=== PATIENT | female | born 1985 | race Caucasian/White ===

== ENCOUNTER 2018-06-16 07:00 | Outpatient (RCR) | payer OTHER, SELFPAY ==
--- NOTE | 2018-02-10 13:48 | MASS.EVAL ---
Massage Therapy Evaluation: Evaluation Date: 02/10/2018 The patient is a 32 year old female referred to [facility] by Dr. Bonilla with a diagnosis of low back pain and headaches. She presents today with symptoms of tension and aching all through the upper body, primarily the neck and shoulders. She reports experiencing occassional headaches. She also reports numbness and tingling bilaterally in the upper extremities. She believes the neck and shoulder tension are contributing factors for both. She also has occassional bouts of sciatica. She rates her overall health to be in good condition with no limitations to activities of daily living. Medications: Control Flexeril Goals: Decrease frequency and intensity of headaches Decrease muscle tension through neck and shoulders Relieve sciatic symptoms See chart for complete health history from PCP. The first treatment consisted of a one hour deep tissue massage to the upper body focusing on the neck and shoulders. The patient had significant tension through the suboccipitals, scalenes, SCM, trapezius, levator scapulae, and rhomboids. Knots were present in the trapezius, levator and rhomboids. She responded well to treatment as there was a moderate decrease to the overall muscle tension through the upper body. I plan on seeing her on an as needed basis for a total of 10 one hour sessions of massage. I believe regular treatment will help meet her goals. Ghazal Tafoya LMT
--- NOTE | 2018-10-26 16:24 | DS.PCM_ITS ---
Massage Therapy Discharge Summary: Initial Evaluation: 02/10/2018 Diagnosis: Low back pain Headaches No. of Visits: 4 of 10 Date of last visit: 06/16/2018 Goals: Decreased frequency and intensity of headaches Decreased pain and muscle tension This patient is being discharged from our care at the [facility]. Thank you, Ghazal Tafoya LMT
== END 2018-06-16 19:00 | disposition home or self-care (01) ==
LOC: MASS 07:00
PROVIDERS: Family Provider Family Medicine; PCP Family Medicine; Visit Provider Family Medicine
DX: M54.5 Low back pain (principal)
CPT/HCPCS: 97124

== ENCOUNTER → 2018-08-02 13:00 | Outpatient (CLI) | payer OTHER, SELFPAY ==
[2018-08-06 08:09] LABS: HPV Reflexed? NOT INDICATED
== END ==
PROVIDERS: Family Provider Obstetrics & Gynecology; PCP Obstetrics & Gynecology; Visit Provider Obstetrics & Gynecology
DX: Z12.4 Encounter for screening for malignant neoplasm of cervix (principal)
CPT/HCPCS: 88175; G0145

== ENCOUNTER → 2020-08-08 | Outpatient (CLI) | payer OTHER, SELFPAY ==
[2020-08-15 14:51] LABS: HPV Reflexed? NOT INDICATED
== END | disposition home or self-care (01) ==
LOC: LABSPEC 13:01
PROVIDERS: PCP Family Medicine; Visit Provider Obstetrics & Gynecology
DX: Z12.4 Encounter for screening for malignant neoplasm of cervix (principal)
CPT/HCPCS: 88175; G0145

== ENCOUNTER → 2021-01-18 11:36 | Outpatient (CLI) | payer OTHER, SELFPAY ==
[2021-01-18 12:39] LABS: Erythrocyte Sedimentation Rate 24 mm/hr (0-30)
== END ==
PROVIDERS: PCP Family Medicine; Referring Provider Family Medicine; Visit Provider Family Medicine
DX: M79.10 Myalgia, unspecified site (principal); M25.50 Pain in unspecified joint; W57.XXXA Bitten or stung by nonvenomous insect and other nonvenomous arthropods, initial encounter
CPT/HCPCS: 36415; 85652; 86140

== ENCOUNTER → 2021-07-09 20:57 | Outpatient (CLI) | payer OTHER, SELFPAY | PROVIDERS: PCP Family Medicine; Visit Provider Physician Assistant Surgical | DX: R51.9 Headache, unspecified (principal) | CPT/HCPCS: 87635; U0005; U0003 ==

== ENCOUNTER → 2021-08-27 08:21 | Outpatient (CLI) | payer OTHER, SELFPAY ==
[2021-08-27 09:30] LABS: Erythrocyte Sedimentation Rate 22 mm/hr (0-30)
[2021-08-27 10:00] LABS: Rheumatoid Factor < 10.0 IU/mL (<15)
[2021-08-28 13:17] LABS: ANTINUCLEAR ANTIBODIES DIRECT Negative (Negative)
[2021-08-29 15:18] LABS: CCP IgG Antibodies 5 units (0-19)
== END ==
PROVIDERS: PCP Family Medicine; Referring Provider Family Medicine; Visit Provider Family Medicine
DX: M25.50 Pain in unspecified joint (principal); R79.82 Elevated C-reactive protein (CRP)
CPT/HCPCS: 36415; 85652; 86038; 86140; 86200; 86225; 86235; 86431

== ENCOUNTER 2021-10-22 15:15 | Outpatient (RCR) | payer OTHER, SELFPAY ==
--- NOTE | 2020-12-18 16:42 | MASS.EVAL_ITS ---
Massage Therapy Evaluation: Initial Evaluation Date: 12/18/2020 /Age: 10 1985, 35 Diagnosis: Cervicalgia Low Back Pain Goals: Decrease muscle pain and tension Decrease headaches Decrease numbness/tingling in upper extremities Decrease sciatica Assessment: Aminata is a good candidate for massage at this time. We have had success treat ing her symptoms in the past. Plan: To be seen one time per month or PRN for a total of 10 one hour sessions.
--- NOTE | 2021-10-23 06:52 | MASS.DISCH ---
Massage Therapy Discharge Summary: Initial Evaluation Date: 12/18/20 Diagnosis: Cervicalgia Low Back Pain No. of Visits: 10 Date of last visit: 10/22/21 This patient is being discharged from our care at the [facility]. Thank you, Ghazal Tafoya LMT
== END 2021-10-22 19:00 | disposition home or self-care (01) ==
LOC: MASS 15:15
PROVIDERS: PCP Family Medicine; Referring Provider Family Medicine; Visit Provider Family Medicine
DX: M54.2 Cervicalgia (principal); M54.50 Low back pain, unspecified
CPT/HCPCS: 97124

== ENCOUNTER → 2022-04-25 | Outpatient (CLI) | payer OTHER, SELFPAY | END | disposition home or self-care (01) | PROVIDERS: Referring Provider Physician Assistant; Visit Provider Physician Assistant | DX: R60.9 Edema, unspecified (principal) | CPT/HCPCS: 87070; 87077; 87186; 87205 ==

== ENCOUNTER → 2022-07-15 | Outpatient (CLI) | payer OTHER, SELFPAY ==
[2022-07-15 14:44] LABS: Troponin-I HS 3 pg/mL (3.0-54.0)
[2022-07-18 12:08] LABS: PROEL- A/G Ratio 1.1 (0.7-1.7); PROEL- Albumin 3.7 g/dL (2.9-4.4); PROEL- Alpha-1 Globulin 0.3 g/dL (0.0-0.4); PROEL- Alpha-2 Globulin 0.9 g/dL (0.4-1.0); PROEL- Beta Globulin 1.2 g/dL (0.7-1.3); PROEL- Gamma Globulin 1.1 g/dL (0.4-1.8); PROEL- Globulin, Total 3.5 g/dL (2.2-3.9); PROEL- TOTAL PROTEIN 7.2 g/dL (6.0-8.5); PROELU- Albumin, Urine 27.8 % (.); PROELU- Alpha-1-Globulin,Ur 7.5 % (.); PROELU- Alpha-2-Globulin,Ur 16.8 % (.); PROELU- Beta Globulin, Ur 26.6 % (.); PROELU- Gamma Globulin, Ur 21.3 % (.); Total Protein, Ur 6.8 mg/dL (Not Estab.)
== END | disposition home or self-care (01) ==
LOC: LAB 12:09
PROVIDERS: PCP Family Medicine; Referring Provider Family Medicine; Visit Provider Family Medicine
DX: Z82.49 Family history of ischemic heart disease and other diseases of the circulatory system (principal)
CPT/HCPCS: 36415; 84165; 84166; 84484; 86141

== ENCOUNTER → 2022-08-08 | Outpatient (CLI) | payer OTHER, SELFPAY ==
--- NOTE | 2022-08-08 08:29 | EKG12_ITS ---
Test Reason : ELEVATED CRP Blood Pressure : / mmHG Vent. Rate : 079 BPM Atrial Rate : 079 BPM P-R Int : 124 ms QRS Dur : 084 ms QT Int : 362 ms P-R-T Axes : 015 035 025 degrees QTc Int : 415 ms Normal sinus rhythm Normal ECG Confirmed by KARTHIK FRAGA, KRISTINE ([id number]), photo editor LUIS VALENTINE ([id number]) on 08/08/2022 10:41:04 AM Referred By: Maria G Bonilla Confirmed By:KRISTINE ANGELES MD
== END | disposition home or self-care (01) ==
LOC: PSN 08:28
PROVIDERS: PCP Family Medicine; Referring Provider Family Medicine; Visit Provider Family Medicine
DX: R07.9 Chest pain, unspecified (principal); R79.82 Elevated C-reactive protein (CRP)
CPT/HCPCS: 93005

== ENCOUNTER → 2022-09-22 | Outpatient (CLI) | payer OTHER, SELFPAY ==
--- NOTE | 2022-09-22 17:02 | STRESSREP ---
Stress Test Report Date: 09/22/2022 Procedure: Exercise tolerance test Indications: Family history of CAD Consent: Per the patient Procedure: The patient exercised on a Westley protocol for 8 minutes and 1 second achieving a peak heart rate of 176 bpm (97% predicted maximal heart rate) with a peak blood pressure 158/60 mmHg and a peak MET capacity of approximately 10.1 MET's. The baseline ECG demonstrated normal sinus rhythm. The peak exercise ECG demonstrated no ischemic changes. There were no cardiac dysrhythmias pretest, during exercise, or recovery. The functional capacity was considered average. The patient had no complaints of chest discomfort during exercise or recovery. The examination was discontinued secondary to target heart rate being achieved, leg fatigue and shortness of breath. Impression: 1. Technically adequate (percent predicted maximal heart rate greater than 85%) exercise tolerance test 2. Peak exercise ECG with no ischemic changes. 3. There were no cardiac dysrhythmias during exercise or recovery This note was generated with [employer] software. It may contain incorrect words, spelling, and punctuation that were not noted in checking the note before signing.
== END | disposition home or self-care (01) ==
LOC: CVS 11:55
PROVIDERS: PCP Family Medicine; Referring Provider Internal Medicine Cardiovascular Disease; Visit Provider Internal Medicine Cardiovascular Disease
DX: R79.82 Elevated C-reactive protein (CRP) (principal)
CPT/HCPCS: 93017

== ENCOUNTER → 2022-10-13 | Outpatient (CLI) | payer OTHER, SELFPAY ==
--- NOTE | 2022-10-13 15:36 | RAD_ITS ---
STUDY: X-RAY - RIGHT HAND REASON FOR EXAM: Female, 37 years old. Pain after a fall TECHNIQUE: 3 view(s) of the hand. COMPARISON: None. FINDINGS: Normal radiocarpal articulation. Normal distal radioulnar joint. Normal visualized carpal bones. Normal carpal articulations Normal carpometacarpal articulation of the thumb. Normal second through fifth carpometacarpal joints. Normal metacarpi. Normal metacarpophalangeal joint of the thumb. Normal interphalangeal joint of the thumb. Normal proximal and distal phalanges of the thumb. Normal metacarpophalangeal joints of the second through fifth fingers. Normal proximal and distal interphalangeal joints of the second through fifth fingers. Normal phalanges of the second through fifth fingers. The soft tissue structures are unremarkable. RAD/Hand Min 3 Views IMPRESSION: Normal x-ray examination of the hand. Electronically Signed: Osmin Jessica MD at 15:57 EST ,
--- NOTE | 2022-10-13 15:40 | RAD_ITS ---
STUDY: X-RAY - RIGHT WRIST REASON FOR EXAM: Female, 37 years old. Pain and swelling TECHNIQUE: 3 view(s) of the wrist were obtained. COMPARISON: None. FINDINGS: Normal visualized distal radius and ulna. Normal radiocarpal articulation. Normal distal radioulnar articulation. Normal carpal bones. Normal carpal articulations. Normal carpometacarpal articulation of the thumb. Normal second through fifth carpometacarpal articulations. Normal visualized metacarpal bones. The soft tissue structures are unremarkable. RAD/Wrist min 3 Views IMPRESSION: Normal x-ray examination of the wrist. Electronically Signed: Osmin Jessica MD at 15:58 EST ,
== END | disposition home or self-care (01) ==
PROVIDERS: PCP Family Medicine; Referring Provider Family Medicine; Visit Provider Family Medicine
DX: M79.641 Pain in right hand (principal); M25.531 Pain in right wrist; W19.XXXA Unspecified fall, initial encounter
CPT/HCPCS: 73110; 73130

== ENCOUNTER → 2023-03-04 | Outpatient (CLI) | payer OTHER, SELFPAY ==
[2023-03-12 10:09] LABS: HPV APTIMA, High Risk Negative (Negative)
== END | disposition home or self-care (01) ==
LOC: LABSPEC 16:11
PROVIDERS: PCP Family Medicine; Referring Provider Registered Nurse; Visit Provider Registered Nurse
DX: Z01.419 Encounter for gynecological examination (general) (routine) without abnormal findings (principal)
CPT/HCPCS: 87624; 88175; G0145

== ENCOUNTER → 2023-09-16 | Outpatient (CLI) | payer OTHER, SELFPAY ==
[2023-09-16 11:30] LABS: CRP, High Sensitivity Cardiac 8.23 mg/L
== END | disposition home or self-care (01) ==
PROVIDERS: PCP Family Medicine; Referring Provider Internal Medicine Cardiovascular Disease; Visit Provider Internal Medicine Cardiovascular Disease
DX: R79.82 Elevated C-reactive protein (CRP) (principal); Z82.49 Family history of ischemic heart disease and other diseases of the circulatory system; E78.5 Hyperlipidemia, unspecified
CPT/HCPCS: 36415; 86141

== ENCOUNTER → 2023-10-07 | Outpatient (CLI) | payer OTHER, SELFPAY ==
--- NOTE | 2023-10-07 16:36 | RAD_ITS ---
STUDY: X-RAY - LEFT SHOULDER REASON FOR EXAM: Female, 38 years old. LEFT SHOULDER PAIN TECHNIQUE: 4 view(s) of the shoulder. COMPARISON: None. FINDINGS: Normal glenohumeral articulation. Normal acromioclavicular joint. Normal acromion. Normal humeral head and visualized proximal humerus. The soft tissue structures are unremarkable. Normal visualized pulmonary apex. RAD/Shoulder min 2 Views IMPRESSION: Normal x-ray examination of the shoulder. Electronically Signed: Axel Alatorre MD at 20:53 EST ,
== END | disposition home or self-care (01) ==
LOC: RAD 16:35
PROVIDERS: PCP Family Medicine; Referring Provider Nurse Practitioner Family; Visit Provider Nurse Practitioner Family
DX: M25.512 Pain in left shoulder (principal)
CPT/HCPCS: 73030

== ENCOUNTER 2023-11-05 07:30 | Outpatient (RCR) | payer OTHER, SELFPAY ==
--- NOTE | 2023-10-13 08:54 | HP.PTEVAL_ITS ---
Patient's Visit Information Visit Information Visit Information: RENNY ESTRADA is a 38 year old F referred to Physical Therapy by Dr. 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 Date of Evaluation: 10/13/23 Physical Therapist: YULY Abebe Visit Plan Frequency: 2x /Week Duration: 2 Months Plan: 2X/ week for 6 weeks for neck and lat stretching, postural and scapular exercises, L RC strength with HEP HEP: Wall lat stretch, supine wand flexion, Seated with arm under the chair levator stretch, mid rows with green band Subjective Subjective: Pt reports that she has trouble to use the COLEMAN or drive though on the L. She occ has paresthesia of the arm to the elbow. She was driving and got pain radiating from shoulder down to her hand and it got worse through the night around 09-20-23. She went to sleep and she woke up in extreme pain. It is not getting better. X-ray was normal. She is thinking that she has some kind of tear and it is worse with movement out to the side . She is waking up N&T in the L hand. She has a deep dull ache in the joint and N&T into the hand. She has had multiple PT for neck issues and tension ARAMBULA and did not have any x- rays. She is R handed. She has been sleeping on her back because of the shoulder pain and sleeping on the L shoulder makes it worse. Her pain is better with 500mg naproxen helps her to sleep. She was waking up in pain before then. 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 With in the past 2 months she has been trying to exercises more (yoga) and she did notice discomfort with push ups. 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 Shoulder flexion and abd are painful and tight at end range on the L. IR on the R L1 B L shoulder MMT: R shld flex 9.3 and L 6.2 R shld abd 6.8 and L 3.9 R shld ER 7.8 and L 5 R shld IR 7.6 and L 6.2 C-spine AROM: flex 100%, Rot B 90%, Ext 25%, SB R 75% PROM L shoulder tight at end range with some pain. Lat was really tight B as well as c-spine musculature Posture: rounded shoulders Balance/Special Test Scores Quick DASH Score: 52.2725 Goals Goal 1:: I HEP Goal Time Frame: 6-8 Weeks Goal 2:: Be able to use L UE to reach out to the side without pain in the drive through or COELMAN Goal Time Frame: 6-8 Weeks Goal 3:: Increase L shoulder strength (at time of the eval: shoulder MMT: R shld flex 9.3 and L 6.2 R shld abd 6.8 and L 3.9 R shld ER 7.8 and L 5 R shld IR 7.6 and L 6.2) Goal Time Frame: 6-8 Weeks Goal 4:: Be more aware and sit with upright posture during treatment sessions and at work etc Goal Time Frame: 6-8 Weeks Rehabilitation Potential Rehabilitation Potential: Good Anticipated Interventions Patient/Client Instruction: Educate patient on: Condition and Plan of Care For the Purpose of:: To decrease pain, To increase ROM, To improve nutrient delivery to tissue, To improve muscle performance and motor function, To improve ability to perform ADL's, To increase tolerance to activity/condition/position, To improve performance and independence with ADL's, To decrease level of supervision to perform tasks, To improve ability of physical actions for home/community/work/leisure, To improve health of tissue, To decrease soft tissue restriction and To increase flexibility/ROM Therapeutic Exercise to Include: Strength training, Postural training, Fle xibilty training, Neuromotor development, Passive ROM, Active ROM and Scapular Strength/Stabilization For the Purpose of:: To decrease pain, To increase ROM, To improve nutrient delivery to tissue, To improve muscle performance and motor function, To improve ability to perform ADL's, To increase tolerance to activity/condition/position, To improve performance and independence with ADL's, To improve health of tissue, To decrease soft tissue restriction and To increase flexibility/ROM Manual Therapy Techniques to Include: Mobilization, Passive ROM and Soft tissue mobilization For the Purpose of:: To decrease pain, To increase ROM, To improve nutrient delivery to tissue, To improve muscle performance and motor function, To improve ability to perform ADL's, To increase tolerance to activity/condition/position, To improve health of tissue, To decrease soft tissue restriction and To increase flexibility/ROM Text: Thank you for the opportunity to evaluate your patient. For Medicare and Medicare HMO plans, please review the plan of care and approve it. It will need to be FAXED BACK to us at [phone] for Medicare purposes. For Medicare only, by signing this I certify the plan of care. Please let me know if there are questions or concerns regarding this plan of care. Physician Signature: Date:
--- NOTE | 2023-11-05 08:06 | HP.PTDCSUM ---
Discharge Summary D/C summary: It has been my pleasure to treat RENNY ESTRADA referred by Dr. Maria G Bonilla DO, with the diagnosis of L shoulder disorder of the synovium & tendon for a total of 7 visit(s). Discharge Date: 11/05/23 Please see the following information for a summary of their discharge status. Subjective Subjective: Pt has pictures for all of the exercises on them and stretches and feels comfortable doing them at home. She def feels that it is better/stronger. She has less pain reaching out to the side Pain L shoulder pain: Pain Intensity (Out of 10): 1 c-spoine: Pain Intensity (Out of 10): 1 Overall Improvement % Improvement: 50 Objective Objective/Function: shoulder MMT: R shld flex 9.3 and L 7.8 R shld abd 6.8 and L 7.6 R shld ER 7.8 and L 9.7 R shld IR 7.6 and L 11 Goals Goal 1:: I HEP Goal Progress: Goal Met Goal 2:: Be able to use L UE to reach out to the side without pain in the drive through or [employer]LEMAN Goal Progress: Progressing Goal 3:: Increase L shoulder strength (at time of the eval: shoulder MMT: R shld flex 9.3 and L 6.2 R shld abd 6.8 and L 3.9 R shld ER 7.8 and L 5 R shld IR 7.6 and L 6.2) Goal Progress: Goal Met Goal 4:: Be more aware and sit with upright posture during treatment sessions and at work etc Goal Progress: Goal Met Plan Plan: DC PT to I HEP D/C Information Discharge Comments: DC PT to HEP d/c sentence: If there are questions or concerns regarding this patient's physical therapy, please feel free to call me at [phone]. Thank you for the referral of this patient. Sincerely, Vannessa Peralta, MPT Balance/Gait/Functional tests Balance/Special Test Scores Quick DASH Score: 20.4525 Improvement % Improvement: 50
== END 2023-11-05 19:00 | disposition home or self-care (01) ==
LOC: PT 07:30
PROVIDERS: PCP Family Medicine; Referring Provider Family Medicine; Visit Provider Family Medicine
DX: M67.912 Unspecified disorder of synovium and tendon, left shoulder (principal)
CPT/HCPCS: 97110; 97162

== ENCOUNTER → 2024-03-18 | Outpatient (CLI) | payer OTHER, SELFPAY ==
--- NOTE | 2024-03-18 11:56 | BI_ITS ---
MAMMOGRAPHY - BILATERAL SCREENING REASON FOR EXAM: Female, 38 years old. Routine annual screening examination. PERTINENT HISTORY: Non-contributory. TECHNIQUE: Digital bilateral breast shauna (3D mammographic acquisition) in the CC and MLO projections. 2-D mediolateral oblique (MLO) and craniocaudad (CC) views of both breasts were obtained. CAD: Full Field Digital Mammography with Computer Added Detection was performed. COMPARISON: None. Baseline examination. FINDINGS: Breast Composition: There are scattered areas of fibroglandular density. There are no dominant masses or suspicious calcifications. No other significant abnormalities are identified. BI/SCRN MAMM (CAD)W/SHAUNA BILAT IMPRESSION: Negative screening mammogram. Yearly followup mammogram recommended. (A) ASSESSMENT CATEGORY: BIRADS Category 1: Negative. A letter regarding these results will be sent to the patient by the facility within 30 days. Approximately 10% of breast cancers are not detected by mammography. A normal mammogram should not delay biopsy of a clinically suspicious abnormality. [id number] Electronically Signed: José Miguel Kim MD at 13:15 EDT ,
== END | disposition home or self-care (01) ==
LOC: OPBI 11:55
PROVIDERS: PCP Family Medicine; Referring Provider Nurse Practitioner Family; Visit Provider Nurse Practitioner Family
DX: Z12.31 Encounter for screening mammogram for malignant neoplasm of breast (principal)
CPT/HCPCS: 77063; 77067

== ENCOUNTER → 2025-05-24 | Outpatient (CLI) | payer OTHER, SELFPAY ==
--- NOTE | 2025-05-24 16:15 | BI_ITS ---
EXAM: SCRN MAMM (CAD)W/SHAUNA BILAT DATE: 05/24/2025 CLINICAL HISTORY: F, Age 39 y/o , SCREENING FOR BREAST CANCER No family history. TECHNIQUE: SCRN MAMM (CAD)W/SHAUNA BILAT COMPARISON: Prior exam(s) dated March 18, 2024.. FINDINGS: TISSUE DENSITY: There are scattered areas of fibroglandular density. Bilateral Breast Mammographic Findings: No significant masses, calcifications or other abnormalities are identified. No suspicious masses, areas of developing architectural distortion, or suspicious calcifications. There has been no significant interval change. BI/SCRN MAMM (CAD)W/SHAUNA BILAT IMPRESSION: Stable examination OVERALL FINAL ASSESSMENT BI-RADS 1: NEGATIVE. RECOMMENDATION: Routine annual follow-up in 1 Year A letter with findings and recommendations will be mailed to the patient. Reading Location: [place] [address]
--- NOTE | 2025-05-24 16:15 | BI_ITS ---
EXAM: SCRN MAMM (CAD)W/SHAUNA BILAT DATE: 05/24/2025 CLINICAL HISTORY: F, Age 39 y/o , SCREENING FOR BREAST CANCER No family history. TECHNIQUE: SCRN MAMM (CAD)W/SHAUNA BILAT COMPARISON: Prior exam(s) dated March 18, 2024.. FINDINGS: TISSUE DENSITY: There are scattered areas of fibroglandular density. Bilateral Breast Mammographic Findings: No significant masses, calcifications or other abnormalities are identified. No suspicious masses, areas of developing architectural distortion, or suspicious calcifications. There has been no significant interval change. BI/SCRN MAMM (CAD)W/SHAUNA BILAT IMPRESSION: Stable examination OVERALL FINAL ASSESSMENT BI-RADS 1: NEGATIVE. RECOMMENDATION: Routine annual follow-up in 1 Year A letter with findings and recommendations will be mailed to the patient. Reading Location: [place] [address]
== END | disposition home or self-care (01) ==
LOC: OPBI 16:10
PROVIDERS: PCP Family Medicine; Referring Provider Nurse Practitioner Family; Visit Provider Nurse Practitioner Family
DX: Z12.31 Encounter for screening mammogram for malignant neoplasm of breast (principal)
CPT/HCPCS: 77063; 77067

== ENCOUNTER → 2025-10-16 | Outpatient (CLI) | payer OTHER, SELFPAY ==
--- NOTE | 2025-10-16 07:15 | CT_ITS ---
PROCEDURE: LIMITED CHEST CT CARDIAC ONLY 10/16/2025 REASON FOR EXAM: FAM HX CAD TECHNIQUE: Procedure Code: [id number] Modality: CT Procedure: LIMITED CHEST CT CARDIAC ONLY CONTRAST: None One or more dose reduction techniques were used (e.g., Automated exposure control, adjustment of the mA and/or kV according to patient size, use of iterative reconstruction technique). RADIATION DOSE SUMMARY: CTDlvol: 12.19 mGy DLP: 219.42 mGycm COMPARISON: None FINDINGS: No coronary artery calcification is seen. The heart is nonenlarged. The visualized portions of the lungs are unremarkable. Fatty infiltration of the liver. CT/Limited Chest CT Cardiac Only IMPRESSION: No coronary artery calcification is seen. Reading Location: [place] [id number]
--- OUTSIDE RECORDS SUMMARY | 2025-10-16 07:16 | XMS RPT_ITS | CCD ---
Author Organization [facility] Care Team Providers Care Gore Inserter Name Role Phone Dr. Maria G Bonilla Primary Care Provider Dr. Maria G Bonilla Referring Provider Dr. Lucas Beasley Attending Provider Dr. Maria G Bonilla Primary Care Provider Dr. Maria G Bonilla Referring Provider [phone] DORIE Chin Attending Provider DORIE Carrington Attending Provider Dr. Maria G Bonilla Primary Care Provider Dr. Maria G Bonilla Referring Provider DORIE Carrington Attending Provider Dr. Pawel Orr Attending Provider Noemy Hunter Attending Provider Unavailable Dr. Lilliana Kinsey Attending Provider Dr. Lilliana Kinsey Referring Provider Dr. Lilliana Kinsey Other Provider Maria G Bonilla DO Primary Care Provider MADDIE OWENS Attending Unavailable Dr. Maria G Bonilla DO Primary Care Provider Dr. Maria G Bonilla DO Referring Provider Seema Benton Attending Provider Bull GUERRA-CSeema Referring Provider [phone] Assessment, Health Risk Attending Unavaila ble Assessment, Health Risk Referring Unavaila ble Malys, Maria G Primary Care Unavailable Seema Gottlieb Referring Unavailable Malys, Maria G Primary Care Unavailable Seema Gottlieb Attending Unavailable Seema Gottlieb Attending Unavailable Malys, Maria G Primary Care Unavailable Malys, Maria G Referring Unavailable Medications Current Medications Medication Drug Class(es) Dates Sig (Normalized) Sig (Original) cyclobenzaprine hydrochloride 5 mg oral tablet (15 sources) Muscle Relaxant Start: 07-09-2021 End: 09-10-2022 take 1 tablet by mouth once daily as needed for muscle spasms Cyclobenzaprine 5 mg tablet Active 5 mg PO DAILY as needed for muscle spasm September 10, 2022 1:30pm cyclobenzaprine (FLEXERIL) 5 mg tablet Take by mouth three times a day. 0 Active Desog-E.Estradiol/E.Estradio l (9 sources) Progestin, Estrogen Start: 07-09-2021 take 0.15 tablet by mouth once daily Desog-E.Estradiol/E.Estradiol (Kariva (28)) 0.15-0.02 mgx21 /0.01 mg x 5 tablet Active 1 TABLET PO DAILY July 09, 2021 4:13pm Start: 07-09-2021 End: 03-04-2023 take 0.15 tablet by mouth once daily Desog-E.Estradiol/E.Estradiol (Kariva (2 8)) 0.15-0.02 mgx21 /0.01 mg x 5 tablet Discontinued 1 {tbl} PO DAILY July 09, 2021 12:00am March 04, 2023 1:29pm Start: 07-09-2021 End: 03-04-2023 take 0.15 tablet by mouth once daily Desog-E.Estradiol/E.Estradiol (Kariva (2 8)) 0.15-0.02 mgx21 /0.01 mg x 5 tablet Discontinued 1 TABLET PO DAILY July 08, 2021 11:00pm March 04, 2023 12:29pm Start: 07-09-2021 take 0.15 tablet by mouth once daily Desog-E.Estradiol/E.Estradiol (Kariva (2 8)) 0.15-0.02 mgx21 /0.01 mg x 5 tablet Active 1 TABLET PO DAILY July 08, 2021 11:00pm Start: 07-09-2021 take 0.15 tablet by mouth once daily Desog-E.Estradiol/E.Estradiol (Kariva (2 8)) 0.15-0.02 mgx21 /0.01 mg x 5 tablet Active 1 TABLET PO DAILY July 09, 2021 12:00am escitalopram 5 mg oral tablet (10 sources) Serotonin Reuptake Inhibitor Start: 07-09-2021 take 1 tablet by mouth once daily Escitalopram Oxalate (Lexapro) 5 mg tablet Active 5 mg PO DAILY July 09, 2021 12:00am Ibuprofen (1 source) Nonsteroidal Anti-inflammatory Drug IBUPROFEN ORAL Take by mouth. 0 Active omeprazole 20 mg delayed release oral capsule (5 sources) Proton Pump Inhibitor Start: 09-10-2022 take 1 capsule by mouth once daily as needed Omeprazole 20 mg capsule,delayed release(DR/EC) Active 20 mg PO DAILY as needed September 10, 2022 12:00am 24 hr oxybutynin chloride 5 mg extended release oral tablet (14 sources) Cholinergic Muscarinic Antagonist Start: 09-10-2022 take 1 tablet by mouth once daily as needed Oxybutynin Chloride (Ditropan Xl) 5 mg tablet extended release 24hr Active 5 mg PO DAILY as needed September 10, 2022 12:00am Start: 07-09-2021 End: 09-10-2022 take 1 tablet by mouth twice daily Oxybutynin Chloride 5 mg tablet Discontinued 5 mg PO TWICE A DAY July 09, 2021 12:00am September 10, 2022 1:32pm predniSONE 20 mg oral tablet (1 source) Start: 02-29-2024 take 1 tablet by mouth once daily predniSONE (DELTASONE) 20 mg tablet Take 1 tablet by mouth once daily. 5 tablet 0 02/29/2024 Active Completed/Discontinued Medications Medication Drug Class(es) Dates Sig (Normalized) Sig (Original) levoFLOXacin 500 mg oral tablet (8 sources) Quinolone Antimicrobial Start: 04-24-2022 End: 09-17-2022 take 1 tablet by mouth once daily Levofloxacin 500 mg tablet Discontinued 500 mg PO DAILY 7 0 April 24, 2022 12:00am September 17, 2022 12:08pm norethindrone 0.35 mg oral tablet (8 sources) Start: 03-04-2023 End: 05-17-2025 take 1 tablet by mouth once daily Norethindrone (Contraceptive) 0.35 mg tablet Discontinued 0.35 mg PO DAILY 84 4 February 08, 2024 12:27pm May 17, 2025 3:37pm Problems Active Problems Problem Classification Problem Date Documented Da te Episodic/Chronic Disorders of lipid metabolism (7 sources) Dyslipidemia; Translations: [Hyperlipidemia, unspecified] Chronic Genitourinary symptoms and ill-defined conditions (3 sources) Genuine stress incontinence; Translations: [Stress incontinence (female) (male)] 03-04-2023 Chronic Immunizations and screening for infectious disease (14 sources) Patient encounter status; Translations: [Encounter for screening for COVID-19] 02-20-2023 Episodic Comment on above: elevated BP in offic e MEC level 3. will transition to POP Other nervous system disorders (3 sources) Carpal tunnel syndrome; Translations: [Carpal tunnel syndrome, right upper limb] 02-20-2023 Chronic Other nervous system disorders (2 sources) Carpal tunnel syndrome of right wrist; Translations: [Carpal tunnel syndrome, right upper limb] 02-20-2023 Chronic Other non-traumatic joint disorders (1 source) Multiple joint pain; Translations: [Pain in unspecified joint] 02-29-2024 Episodic Other skin disorders (1 source) Loss of hair; Translations: [Nonscarring hair loss, unspecified] 02-29-2024 Episodic Other upper respiratory infections (9 sources) Acute upper respiratory infection; Translations: [Acute upper respiratory infection, unspecified] 02-20-2023 Episodic Residual codes; unclassified (5 sources) Family history of coronary arteriosclerosis; Translations: [Family history of ischemic heart disease and other diseases of the circulatory system] 02-20-2023 Episodic Residual codes; unclassified (2 sources) Family history of ischemic heart disease and other diseases of the circulatory system; Translations: [Family history of ischemic heart disease] Episodic Skin and subcutaneous tissue infections (11 sources) Cellulitis of lower limb; Translations: [Cellulitis of left lower limb] Episodic Past or Other Problems Problem Classification Problem Date Documented Da te Episodic/Chronic Other screening for suspected conditions (not mental disorders or infectious disease) (9 sources) Elevated C-reactive protein; Translations: [Elevated C-reactive protein (CRP)] Onset: 05-29-2025 Episodic Results Test Name Value Interpretation Reference Range Facility CBC, Employeeon 09-06-2025 Absolute Lymph 2.94 X10 3/uL Normal 0.83-4.51 [facility] Comment on above: Performed By: #### L 100.0200, L500.2900, L400.0100 #### [facility] [address] [place], [address] Absolute Neut 4.1 X10 3/uL Normal 2.0-7.7 [facility] Comment on above: Performed By: #### L 100.0200, L500.2900, L400.0100 #### [facility] [address] [place], [address] Basophils/100 WBC (Bld) 1.1 % High 0-1 [facility] Comment on above: Performed By: #### L 100.0200, L500.2900, L400.0100 #### [facility] [address] [place], [address] Eosinophils/100 WBC (Bld) 4.0 % Normal 0-5 [facility] Comment on above: Performed By: #### L 100.0200, L500.2900, L400.0100 #### [facility] [address] [place], [address] Erythrocyte distribution width (RBC) [Ratio] 12.7 % Normal 11.6-14.6 [facility] Comment on above: Performed By: #### L 100.0200, L500.2900, L400.0100 #### [facility] [address] [place], [address] Hematocrit (Bld) [Volume fraction] 38.0 % Normal 37-47 [facility] Comment on above: Performed By: #### L 100.0200, L500.2900, L400.0100 #### [facility] [address] [place], [address] Hemoglobin (Bld) [Mass/Vol] 13.3 g/dL Normal 12.0-15.0 [facility] Comment on above: Performed By: #### L 100.0200, L500.2900, L400.0100 #### [facility] [address] [place], [address] Lymphocytes/100 WBC (Bld) 36.9 % Normal 19-41 [facility] Comment on above: Performed By: #### L 100.0200, L500.2900, L400.0100 #### [facility] [address] [place], [address] MCH (RBC) [Entitic mass] 31.4 pg Normal 27.0-32.0 [facility] Comment on above: Performed By: #### L 100.0200, L500.2900, L400.0100 #### [facility] [address] [place], [address] MCHC (RBC) [Mass/Vol] 35.0 g/dL Normal 32-36 [facility] Comment on above: Performed By: #### L 100.0200, L500.2900, L400.0100 #### [facility] [address] [place], [address] MCV (RBC) [Entitic vol] 89.6 fL Normal 81-99 [facility] Comment on above: Performed By: #### L 100.0200, L500.2900, L400.0100 #### [facility] [address] [place], [address] Monocytes/100 WBC (Bld) 6.5 % Normal 0-10 [facility] Comment on above: Performed By: #### L 100.0200, L500.2900, L400.0100 #### [facility] [address] [place] [facility] [place], [address] Neutrophils/100 WBC (Bld) 51.2 % Normal 47-70 [facility] Comment on above: Performed By: #### L 100.0200, L500.2900, L400.0100 #### [facility] [address] [place], [address] NRBC # 0.00 10 3/uL Normal 0-5 [facility] Comment on above: Performed By: #### L 100.0200, L500.2900, L400.0100 #### [facility] [address] [place], [address] Nucleated RBC (Bld) [#/Vol] 0 10*3/uL Normal 0-5 [facility] Comment on above: Performed By: #### L 100.0200, L500.2900, L400.0100 #### [facility] [address] [place], [address] Platelet mean volume (Bld) [Entitic vol] 10.6 fL Normal 6.2-12.0 [facility] Comment on above: Performed By: #### L 100.0200, L500.2900, L400.0100 #### [facility] [address] [place], [address] Platelets (Bld) [#/Vol] 327 10*3/uL Normal 150-450 [facility] Comment on above: Performed By: #### L 100.0200, L500.2900, L400.0100 #### [facility] [address] [place], [address] RBC (Bld) [#/Vol] 4.24 10*6/uL Normal 4.2-5.4 [facility] Comment on above: Performed By: #### L 100.0200, L500.2900, L400.0100 #### [facility] [address] [place], [address] RDW SD 41.2 fl Normal 35.1-43.9 [facility] Comment on above: Performed By: #### L 100.0200, L500.2900, L400.0100 #### [facility] [address] [place], [address] WBC (Bld) [#/Vol] 8.0 10*3/uL Normal 4.4-11.0 [facility] Comment on above: Performed By: #### L 100.0200, L500.2900, L400.0100 #### [facility] [address] [place], [address] Employee Profileon LDH 154 U/L Normal 84-246 [facility] Comment on above: Performed By: #### L 100.0200, L500.2900, L400.0100 #### [facility] [address] [place], [address] Phosphate [Mass/Vol] 2.8 mg/dL Normal 2.7-4.5 [facility] Comment on above: Performed By: #### L 100.0200, L500.2900, L400.0100 #### [facility] [address] [place], [address] URIC 5.4 mg/dL Normal 2.6-6.0 [facility] Comment on above: Result Comment: The drugs N-Acetylcysteine and Metamizole may falsely depress this assay. Performed By: #### L 100.0200, L500.2900, L400.0100 #### [facility] [address] [place], [address] Urinalysis, Employeeon 09-06 BILIRUBIN URINE Negative Normal Negative [facility] Comment on above: Order Comment: Urine , Random Performed By: #### L 100.0200, L500.2900, L400.0100 #### [facility] [address] [place], [address] Clarity (U) Cloudy Normal Clear [facility] Comment on above: Order Comment: Urine , Random Performed By: #### L 100.0200, L500.2900, L400.0100 #### [facility] [address] [place], [address] Color (U) Yellow Normal Yellow [facility] Comment on above: Order Comment: Urine , Random Performed By: #### L 100.0200, L500.2900, L400.0100 #### [facility] [address] [place], [address] GLUCOSE, UR Normal Normal Normal [facility] Comment on above: Order Comment: Urine , Random Performed By: #### L 100.0200, L500.2900, L400.0100 #### [facility] [address] [place], [address] KETONE UR Negative Normal Negative [facility] Comment on above: Order Comment: Urine , Random Performed By: #### L 100.0200, L500.2900, L400.0100 #### [facility] [address] [place], [address] LEUK ESTERASE 500 /ul Abnormal Negative [facility] Comment on above: Order Comment: Urine , Random Performed By: #### L 100.0200, L500.2900, L400.0100 #### [facility] [address] [place], [address] Nitrite Ql (U) Negative Normal Negative [facility] Comment on above: Order Comment: Urine , Random Performed By: #### L 100.0200, L500.2900, L400.0100 #### [facility] [address] [place], [address] OCCULT BLOOD-UR Negative Normal Negative [facility] Comment on above: Order Comment: Urine , Random Performed By: #### L 100.0200, L500.2900, L400.0100 #### [facility] [address] [place], [address] pH UR 7.0 Normal 5.0 - 8.0 [facility] Comment on above: Order Comment: Urine , Random Performed By: #### L 100.0200, L500.2900, L400.0100 #### [facility] [address] [place], [address] PROT DIPSTX 15 mg/dl Abnormal Negative [facility] Comment on above: Order Comment: Urine , Random Performed By: #### L 100.0200, L500.2900, L400.0100 #### [facility] [address] [place], [address] SP.GR. DIPSTX 1.010 Normal 1.002-1.030 [facility] Comment on above: Order Comment: Urine , Random Performed By: #### L 100.0200, L500.2900, L400.0100 #### [facility] [address] [place], [address] UROBILI Normal Normal Normal [facility] Comment on above: Order Comment: Urine , Random Performed By: #### L 100.0200, L500.2900, L400.0100 #### [facility] [address] [place], [address] Breast imaging reportOrdered By: José Miguel Kim on 05-25-2025 Study report [facility] Imaging Services [address] [place] [address] SCRN MAMM (CAD)W/SHAUNA LACEYSTEPHEN MR#: [id number] Acct: [id number] Name: RENNY ESTRADALE Rep #: [id number] : 1985 F 39 From: Gian Kim MD PCP: Dr. Maria G Bonilla DO Status: REG CLI Study:SCRN MAMM (CAD)W/SHAUNA BILAT Date of Exa m: 05/24/25 Exam# [id number] Ordering Dr: Seema Gottlieb EXAM: SCRN MAMM (CAD)W/SHAUNA BILAT DATE: 05/24/2025 CLINICAL HISTORY: F, Age 39 y/o , SCREENING FOR BREAST CANCER No family history. TECHNIQUE: SCRN MAMM (CAD)W/SHAUNA BILAT COMPARISON: Prior exam(s) dated March 18, 2024.. FINDINGS: TISSUE DENSITY: There are scattered areas of fibroglandular density. Bilateral Breast Mammographic Findings: No significant masses, calcifications or other abnormalities are identified. No suspicious masses, areas of developing architectural distortion, or suspicious calcifications. There has been no significant interval change. BI/SCRN MAMM (CAD)W/SHAUNA BILAT IMPRESSION: Stable examination OVERALL FINAL ASSESSMENT BI-RADS 1: NEGATIVE. RECOMMENDATION: Routine annual follow-up in 1 Year A letter with findings and recommendations will be mailed to the patient. Reading Location: [place] [address] CC: BROOKS Gottlieb; Dr. Maria G Bonilla DO ~ Construction Management Instructor: Signed [facility] SCRN MAMM (CAD)W/SHAUNA BILATo n 05-24-2025 SCRN MAMM (CAD)W/SHAUNA BILAT [facility] Imaging Services [address] [place] [address] SCRN MAMM (CAD)W/SHAUNA BILAT MR#: [id number] Acct: [id number] Name: RENNY ESTRADA Rep #: [id number] : 1985 F 39 From: José Miguel louis MD PCP: Dr. Maria G Bonilla DO Status: REG CLI Study: SCRN MAMM (CAD)W/SHAUNA BILAT Date of Exam: 05/09 05/03 Exam# [id number] Ordering Dr: Seema Gottlieb EXAM: SCRN MAMM (CAD)W/SHAUNA BILAT DATE: 05/24/2025 CLINICAL HISTORY: F, Age 39 y/o , SCREENING FOR BREAST CANCER No family history. TECHNIQUE: SCRN MAMM (CAD)W/SHAUNA BILAT COMPARISON: Prior exam(s) dated March 18, 2024.. FINDINGS: TISSUE DENSITY: There are scattered areas of fibroglandular density. Bilateral Breast Mammographic Findings: No significant masses, calcifications or other abnormalities are identified. No suspicious masses, areas of developing architectural distortion, or suspicious calcifications. There has been no significant interval change. BI/SCRN MAMM (CAD)W/SHAUNA BILAT IMPRESSION: Stable examination OVERALL FINAL ASSESSMENT BI-RADS 1: NEGATIVE. RECOMMENDATION: Routine annual follow-up in 1 Year A letter with findings and recommendations will be mailed to the patient. Reading Location: [place] [address] CC: BROOKS Gottlieb; Dr. 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 Is patient in pain?: No Allergies No Known Allergies Allergy (Verified 05/17/25 15:19) Medications ???Medication ???Instructions ???Recorded ???Confirmed ???Type escitalopram oxalate 5 mg tablet 5 mg PO DAILY 07/09/21 05/17/25 Hi story (Lexapro) cyclobenzaprine 5 mg tablet 5 mg PO DAILY PRN muscle spasm 12/3105/17/25 History omeprazole 20 mg capsule,delayed 20 mg PO DAILY PRN 09/10/22 History release oxybutynin chloride 5 mg 5 mg PO DAILY PRN 09/10/22 5 History tablet,extended release 24 hr (Ditropan XL) norethindrone (contraceptive) 0.35 0.35 mg PO DAILY #84 tabs 05/17/25 Rx mg tablet Is last menstrual period known: Yes Last Menstrual Period: 05/06/25 Post menopausal: No Patient : No : No Control Method: ocp [facility] Medical History (Updated 05/17/25 @ 15:45 by BROOKS Schmid) Contraception management Women's annual routine gynecological examination Stress incontinence Dyslipidemia Family history of coronary artery disease Elevated high sensitivity C-reactive protein Carpal tunnel syndrome of right wrist Low back pain Cellulitis of left leg Encounter for screening for COVID-19 Acute upper respiratory infection Anxiety Family History Father Arthritis Anxiety Asthma Depression Heart disease Hypertension Hyperlipidemia Angina pectoris Psychiatric care COPD (chronic obstructive pulmonary disease) CHF (congestive heart failure) ICD (implantable cardioverter-defibri llator) in place Mother Anxiety Depression Alcoholism Sister Depression Psychiatric care Grandmother Arthritis Asthma Cancer Grandfather Heart disease Hypertension Hyperlipidemia Social History (Updated 05/17/25 @ 15:24 by Génesis Boone) adopted: No household members: spouse and children number of children: 3 current occupational status: employed 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 Date Name GA/Weeks Outcome Route Bth Weight Gen Labor Lgth Anesthesia Del Locatn Provider FOB Unknown Neveah Unknown Iliana Unknown Will HPI Encounter for routine gynecological examination Details: RENNY ESTRADA is a 39 year old who presents for annual exam. She reports no issues or concerns today. Last PAP: 2022; normal. History of abnormal PAP: no Last mammogram: 2023; normal. History of abnormal mammogram: no Colon cancer screening: age 43 Other preventative health care screenings: Maria G Bonilla; PCP Female Reproductive History Last Menstrual Period: 05/06/25 Cycle Length: 21-35 Bleeding Duration: 5 Questions: metorrhagia: No, sexually active: Yes, dyspareunia: Yes (occasional) and PCB: No ROS Const Constitutional: Denies chills, fatigue, fever(s), headache(s) or weight loss Eyes Eyes: Denies change in vision ENT ENT: Denies dizziness Cardio Card: Denies chest pain at rest or palpitations Resp Resp: Denies cough, dyspnea or dyspnea on exertion GI GI: Denies abdominal pain, constipation or nausea : Denies difficulty voiding, dysuria, hematuria, pelvic pain, prolapse symptoms, urinary incontinence, vaginal discharge, vaginal dryness, vaginal odor or vaginal pruritus Skin Skin/Breast: Denies alopecia or rash Neuro Neuro: Denies dizziness Psych Psych: Reports anxiety (controlled with medications); Denies depression Endo Endo: Denies cold intolerance, excessive sweating or heat intolerance Exam Const General: cooperative, healthy appearing, comfortable, no acute distress, well groomed and well hydrated Nutritional Appearance: well nourished Orientation: alert, awake and oriented x3 HENMT Head: normal to inspection and normocephalic Ears: h (more content not included)... Normal [facility] Office Visit Reporton 2023 Office Visit Report [facility] [address] [place] [address] OFFICE VISIT Date of Service: 07/25/24 MR#: [id number] Acct: [id number] Patient: RENNY ESTRADA Rep #: [id number] : 1985 Provider: DORIE Palm Age/Sex: 39/F Location: [facility] Status: Signed Employer Purchased Covid Test Note: Patient here today for Covid Testing, requested by their Employer. Assessment and Plan Assessment and Plan Orders: Orders POC Cepheid Covid, FluAB, RSV 07/25/24 09/22/24 0650 Date Abhijit Cortez Signature: Date (if applicable) CC: Normal [facility] CNOVon 02-29-2024 CNOV Office Visit (GEORGE) RENNY ESTRADA ([id number]) 1985 F Date Time Provider Department 02/29/24 2:00 PM MADDIE OWENS During your visit today, we recorded the following information about you: Temperature Pulse Blood pressure Weight 98.9 degrees 82/minute 121/82 78 kg Height 1.626 m Maddie Owens MD 02/29/2024 3:09 PM Signed On 02/29/2024, I had the pleasure of seeing Renny Estrada at the [facility]. Renny Estrada was referred for an opinion and advice regarding elevated CRP. My findings and final recommendations will be communicated to the requesting health care provider by way of the shared medical record for internal providers or letter via the [employer] for external providers. 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 - In , had covid. Nose sores intermittently thereafter. - Since , with worsening joint pain affecting the shoulders, wrists and knees. Worse with activity. Initial activity after awakening helps. Worst time of day is evening. - Also with pain in the neck and low back. Hip pain and sciatic pain worse with activity (happen at the same time). Worse with activity - Today, reports no recent oral steroids. - Takes ibuprofen and flexeril for pain which help - Morning stiffness x30 minutes - Photosensitivity (face/chest) but more heat related, even with warm shower. - Nose sores and hair loss x15 yrs, worse in the past 2 yrs. - No rash PMH/PSH: GERD Anxiety Tension ARAMBULA Migraines Ovarian cysts ALLERGIES: NKDA MEDICATIONS: Current Outpatient Medications Medication Sig escitalopram oxalate (LEXAPRO) 5 mg tablet Take 5 mg by mouth once daily. Norethindrone, Contraceptive, 0.35 mg tablet Take 1 tablet by mouth once daily. cyclobenzaprine (FLEXERIL) 5 mg tablet Take by mouth three times a day. IBUPROFEN ORAL Take by mouth. No current facility-administere d medications for this visit. FAMILY HISTORY: Paternal great grandmother- RA Paternal great grandfather- MS Paternal aunt- OA SOCIAL HISTORY: Lives in [place] with spouse. 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 3 kids: 15, 17 and 19 yo. Tobacco use: None Alcohol use: 5-6 drinks/week Drug use: None REVIEW OF SYSTEMS: reviewed 08/22 systems, as above and as below: Joint pain, hair loss, dry eyes, neck/back pain, morning stiffness, nose sores, ARAMBULA, vision changes, GERD PHYSICAL EXAM: VITALS: Blood pressure 121/82, pulse 82, temperature 37.2 ?C (98.9 ?F), temperature source Temporal, height 162.6 cm (5' 4), weight 78 kg (172 lb). CONSTITUTIONAL: Well-appearing, in NAD. SKIN: Nonspecific facial erythema with nasolabial involvement. No alopecia. No sclerodactyly, calcinosis, telangiectasias, digital ulcers, or skin thickening. EYES: No scleral icterus or conjunctivitis ENT and Mouth: External ears normal. Nares normal. No oral ulcers RESPIRATORY: Normal breath sounds, clear to auscultation. CARDIOVASCULAR: Regular rate and rhythm, no murmurs or rubs EXTREMITIES/LYMPH: No edema bilaterally NEURO: Awake, alert and oriented, Normal gait MUSCULOSKELETAL: JOINT APPEARANCE: No erythema or warmth of any upper or lower extremity joint. RANGE OF MOTION: Able to fully close fists and curl fingers bilaterally. SWOLLEN JOINTS/SYNOVITIS: No synovitis of any joint. TENDER JOINTS: Tenderness to palpation of the L SI joint Widespread Pain Index: 10 (0-19) Symptoms Severity Scale: 8 (0-12) WPI>7 and SS Scale>5 OR WPI 3-6 and SS Scale >9 consistent with fibromyalgia LABORATORY: *Sep nl WBC, Hgb, Plt, Cr, ALT, AST 09/16/23 HS CRP 8.23 H >3.0 high relative risk 07/15/22 HS CRP 10.30 H >3.0 high relative risk 08/27/21 CRP 12.30 H 0.0-3.0 Unremarkable ESR, RF, CCP, AIXA, 01/18/21 CRP 10.70 H 0.0-3.0 STUDIES: none available for review IMPRESSION and PLAN: 1. Joint pain: Pain in the shoulders, hips and knees without clear evidence for inflammatory arthritis per history or exam. Will assess further for inflammatory arthritis via labs, x-rays and diagnostic prednisone trial as below. With nonspecific facial erythema and flushing that occurs with feeling warm (more than UV light exposure). Will screen for SLE, RA and celiac. Explained that she does meet criteria for fibromyalgia. - Extensively explained the clinical scenario as above - Check labs and x-rays. Notify of results via [employer] - Attempt a diagnostic trial of prednisone 20mg daily x5 days to see if any improvement in joint pain. If there is a significant improvement, this could suggest an inflammatory component of pain which may suggest a diagnosis of inflammatory arthritis. Explained potential side ef (more content not included)... Normal [facility] No Panel InformationOrdered By: Lilliana Kinsey on 09-16-2023 C-Reactive Protein High Sensitivity 8.23 mg/L <3.00 [facility] Comment on above: Low Relative Risk of CVD <1.0 mg/L Average Relative Risk of CVD 1.0 - 3.0 mg/L High Relative Risk of CVD >3.0 mg/L Absolute lymphocyte countOrd ered By: HEALTH ASSESSMENT on 09-14-2023 Lymphocytes Auto (Unsp spec) [#/Vol] 2.98 10*3/uL 0.83-4.51 [facility] Absolute reticulocyte countO rdered By: HEALTH ASSESSMENT on 09-14-2023 Reticulocytes (Bld) [#/Vol] 0.00 10*3/uL 0-5 [facility] Basophil percentageOrdered B y: HEALTH ASSESSMENT on 09-14-2023 Basophil percentage 2.9 mg/dL 2.5-4.9 [facility] Bilirubin [Mass/Vol] 0.30 mg/dL 0.20-1.00 [facility] Comment on above: For patients on eltr ombopag therapy, use of Dimension [place] TBIL is not recommended. Chloride [Moles/Vol] 105 mmol/L 98-107 [facility] Cholesterol [Mass/Vol] 168 mg/dL <200 [facility] Comment on above: <200 mg/dL Desirable 200-240 mg/dL Borderline >240 mg/dL High Risk Glucose [Mass/Vol] 91 mg/dL 74-106 [facility] LDH [Catalytic activity/Vol] 165 U/L 84-246 [facility] Neutrophils (Bld) [#/Vol] 3.7 10*3/uL 2.0-7.7 [facility] Potassium [Moles/Vol] 3.9 mmol/L 3.5-5.1 [facility] Protein [Mass/Vol] 7.1 g/dL 6.4-8.2 [facility] Sodium [Moles/Vol] 136 mmol/L 136-145 [facility] Triglyceride [Mass/Vol] 66 mg/dL <199 [facility] Comment on above: The drugs N-Acetylcy steine and Metamizole may falsely depress this assay.Serum Triglycerides Reference Interval Normal <150 mg/dL Borderline high 150 - 199 mg/dL High 200 - 499 mg/dL Very High > or = 500 mg/dL WBC (Bld) [#/Vol] 8.0 10*3/uL 4.4-11.0 [facility] Bilirubin Test strip Ql (U)O rdered By: HEALTH ASSESSMENT on 09-14-2023 Bilirubin Ql (U) Negative Negative [facility] Blood erythrocytes count (nu mber/volume)Ordered By: HEALTH ASSESSMENT on 09-14-2023 RBC (Bld) [#/Vol] 4.48 10*6/uL 4.2-5.4 [facility] Blood hemoglobin measurement (mass/volume)Ordered By: HEALTH ASSESSMENT on 09-14-2023 Hemoglobin (Bld) [Mass/Vol] 13.4 g/dL 12.0-15.0 [facility] Blood platelet mean volumeOr dered By: HEALTH ASSESSMENT on 09-14-2023 Platelet mean volume (Bld) [Entitic vol] 10.1 fL 6.2-12.0 [facility] Determination of erythrocyte mean corpuscular volume (MCV)Ordered By: HEALTH ASSESSMENT on 09-14-2023 MCV (RBC) [Entitic vol] 93.1 fL 81-99 [facility] Direct bilirubinOrdered By: HEALTH ASSESSMENT on 09-14-2023 Bilirubin.direct [Mass/Vol] 0.07 mg/dL 0.00-0.30 [facility] Hematocrit Auto (Bld) [Volum e fraction]Ordered By: HEALTH ASSESSMENT on 09-14-2023 Hematocrit (Bld) [Volume fraction] 41.7 % 37-47 [facility] Ketones Test strip Ql (U)Ord ered By: HEALTH ASSESSMENT on 09-14-2023 Ketones Ql (U) Negative Negative [facility] Laboratory - Chemistry and C hemistry - challengeOrdered By: HEALTH ASSESSMENT on 09-14-2023 ALP [Catalytic activity/Vol] 83 U/L 45-117 [facility] ALT [Catalytic activity/Vol] 37 U/L 13-56 [facility] Cholesterol.total/Choles terol in HDL [Mass ratio] 3.10 {ratio} [facility] CO2 [Moles/Vol] 26.0 mmol/L 21.0-32.0 [facility] Globulin (S) [Mass/Vol] 3.6 g/dL 2.2-4.2 [facility] Urea nitrogen/Creatinine [Mass ratio] 21.0 mg/mg 10-20 [facility] Laboratory - Hematology and Cell countsOrdered By: HEALTH ASSESSMENT on 09-14-2023 Erythrocyte distribution width (RBC) [Entitic vol] 43.3 fL 35.1-43.9 [facility] Erythrocyte distribution width (RBC) [Ratio] 12.7 % 11.6-14.6 [facility] MCH (RBC) [Entitic mass] 29.9 pg 27.0-32.0 [facility] Nucleated RBC/100 WBC (Bld) [Ratio] 0 % 0-5 [facility] MCHC Auto (RBC) [Mass/Vol]Or dered By: HEALTH ASSESSMENT on 09-14-2023 MCHC (RBC) [Mass/Vol] 32.1 g/dL 32-36 [facility] Nitrite Test strip Ql (U)Ord ered By: HEALTH ASSESSMENT on 09-14-2023 Nitrite Ql (U) Negative Negative [facility] No Panel InformationOrdered By: HEALTH ASSESSMENT on 09-14-2023 Estimated GFR (MDRD) Amer 150 mL/min >60 [facility] Comment on above: GFR Calc Estimated GFR (MDRD) Non-Af Amer 124 mL/min >60 [facility] Comment on above: Non- GFR Calc Platelets bldOrdered By: LOGAN LT ASSESSMENT on 09-14-2023 Platelets (Bld) [#/Vol] 371 10*3/uL 150-450 [facility] Protein Test strip Ql (U)Ord ered By: HEALTH ASSESSMENT on 09-14-2023 Protein Ql (U) Negative Negative [facility] Segmented neutrophils/100 WB C Auto (Bld)Ordered By: HEALTH ASSESSMENT on 09-14-2023 Segmented neutrophils/100 WBC (Bld) 46.6 % 47-70 [facility] Serum or plasma albumin florinda urement (mass/volume)Ordered By: HEALTH ASSESSMENT on 09-14-2023 Albumin [Mass/Vol] 3.5 g/dL 3.2-5.0 [facility] Serum or plasma albumin/glob ulin mass ratioOrdered By: HEALTH ASSESSMENT on 09-14-2023 Albumin/Globulin [Mass ratio] 1.0 {ratio} 0.9-2.4 [facility] Serum or plasma calcium florinda urement (mass/volume)Ordered By: HEALTH ASSESSMENT on 09-14-2023 Calcium [Mass/Vol] 8.4 mg/dL 8.5-10.1 [facility] Serum or plasma cholesterol in HDL measurement (mass/volume)Ordered By: HEALTH ASSESSMENT on 09-14-2023 Cholesterol in HDL [Mass/Vol] 54 mg/dL >40 [facility] Comment on above: The drugs N-Acetylcy steine and Metamizole may falsely depress this assay. Reference Range HDL <40 mg/dL Low HDL Cholesterol HDL >or= 60 mg/dL High HDL Cholesterol Serum or plasma cholesterol in VLDL measurement (mass/volume)Ordered By: HEALTH ASSESSMENT on 09-14-2023 Cholesterol in VLDL [Mass/Vol] 13 mg/dL 5-40 [facility] Serum or plasma creatinine m easurement (mass/volume)Ordered By: HEALTH ASSESSMENT on 09-14-2023 Creatinine [Mass/Vol] 0.57 mg/dL 0.55-1.02 [facility] Comment on above: The validity of the calculated GFR & GFRAA in patients over 70 years has not been determined. Clinical correlation is essential. Serum or plasma low density lipoprotein (LDL) cholesterol measurement (mass/volume)Ordered By: HEALTH ASSESSMENT on 09-14-2023 Cholesterol in LDL [Mass/Vol] 101 mg/dL 0-130 [facility] Serum or plasma urea nitroge n measurement (mass/volume)Ordered By: HEALTH ASSESSMENT on 09-14-2023 Urea nitrogen [Mass/Vol] 12 mg/dL 7-18 [facility] Serum or plasma uric acid me asurement (mass/volume)Ordered By: HEALTH ASSESSMENT on 09-14-2023 Urate [Mass/Vol] 5.5 mg/dL 2.6-6.0 [facility] Comment on above: The drugs N-Acetylcy steine and Metamizole may falsely depress this assay. Thin prep Papanicolaou smear with manual screeningOrdered By: HEALTH ASSESSMENT on 09-14-2023 Thin prep Papanicolaou smear with manual screening 18 U/L 15-37 [facility] Thin prep Papanicolaou smear with manual screening 5 5-15 [facility] Urine blood detectionOrdered By: HEALTH ASSESSMENT on 09-14-2023 RBC Ql (U) Negative Negative [facility] Urine clarityOrdered By: [facility] ASSESSMENT on 09-14-2023 Clarity (U) Clear Clear [facility] Urine color determinationOrd ered By: HEALTH ASSESSMENT on 09-14-2023 Color (U) Straw Yellow [facility] Urine glucose detectionOrder ed By: HEALTH ASSESSMENT on 09-14-2023 Glucose Ql (U) Normal mg/dl Normal [facility] Urine leukocyte esterase det ection by dipstickOrdered By: HEALTH ASSESSMENT on 09-14-2023 Leukocyte esterase Test strip Ql (U) Negative Negative [facility] Urine pHOrdered By: HEALTH A SSESSMENT on 09-14-2023 pH (U) 6.5 [pH] 5.0 - 8.0 [facility] Urine specific gravity measu rementOrdered By: HEALTH ASSESSMENT on 09-14-2023 Specific gravity (U) [Rel density] 1.010 1.002-1.030 [facility] Urobilinogen Auto test strip Ql (U)Ordered By: HEALTH ASSESSMENT on 09-14-2023 Urobilinogen Ql (U) Normal mg/dl Normal [facility] Laboratory - Microbiology an d Antimicrobial susceptibilityon 07-29-2022 SARS-CoV-2 (COVID-19) RNA MILADIS+probe Ql (Unsp spec) Detected [facility] Work Phone: No Panel Informationon 07-29 POC Nasal Swab Influenza A,B Not detected [facility] Work Phone: POC Nasal Swab RSV Not detected [facility] Work Phone: 24 hour urine alpha 2 globul in/total protein ratio by electrophoresis (mass fraction)on 07-15-2022 Alpha 2 globulin Elph (24H U) [Mass fraction] 16.8 % . [facility] Work Phone: 24 hour urine beta globulin/ total protein ratio by electrophoresis (mass fraction)on 07-15-2022 Beta globulin Elph (24H U) [Mass fraction] 26.6 % . [facility] Work Phone: 24 hour urine gamma globulin /total protein ratio by electrophoresis (mass fraction)on 07-15-2022 Gamma globulin Elph (24H U) [Mass fraction] 21.3 % . [facility] Work Phone: Absolute lymphocyte counton 07-15-2022 Lymphocytes Auto (Unsp spec) [#/Vol] 2.88 10*3/uL 0.83-4.51 [facility] Work Phone: Absolute reticulocyte counto n 07-15-2022 Reticulocytes (Bld) [#/Vol] 0.00 10*3/uL 0-5 [facility] Work Phone: Basophil percentageon 2021 Basophil percentage 3.3 mg/dL 2.5-4.9 [facility]: Bilirubin [Mass/Vol] 0.20 mg/dL 0.20-1.00 [facility]: Comment on above: For patients on eltr ombopag therapy, use of Dimension [place] TBIL is not recommended. Chloride [Moles/Vol] 106 mmol/L 98-107 [facility] Work Phone: Cholesterol [Mass/Vol] 211 mg/dL <200 [facility] Work Phone: Comment on above: <200 mg/dL Desirable 200-240 mg/dL Borderline >240 mg/dL High Risk Glucose [Mass/Vol] 96 mg/dL 74-106 [facility] Work Phone: Neutrophils (Bld) [#/Vol] 4.1 10*3/uL 2.0-7.7 [facility] Work Phone: Potassium [Moles/Vol] 3.9 mmol/L 3.5-5.1 [facility] Work Phone: Protein [Mass/Vol] 7.5 g/dL 6.4-8.2 [facility] Work Phone: Sodium [Moles/Vol] 139 mmol/L 136-145 [facility] Work Phone: Triglyceride [Mass/Vol] 90 mg/dL <199 [facility] Work Phone: Comment on above: The drugs N-Acetylcy steine and Metamizole may falsely depress this assay.Serum Triglycerides Reference Interval Normal <150 mg/dL Borderline high 150 - 199 mg/dL High 200 - 499 mg/dL Very High > or = 500 mg/dL WBC (Bld) [#/Vol] 8.0 10*3/uL 4.4-11.0 [facility] Work Phone: Bilirubin Test strip Ql (U)o n 07-15-2022 Bilirubin Ql (U) Negative Negative [facility] Work Phone: Blood erythrocytes count (nu mber/volume)on 07-15-2022 RBC (Bld) [#/Vol] 4.53 10*6/uL 4.2-5.4 [facility] Work Phone: Blood hemoglobin measurement (mass/volume)on 07-15-2022 Hemoglobin (Bld) [Mass/Vol] 13.7 g/dL 12.0-15.0 [facility] Work Phone: Blood platelet mean volumeon 07-15-2022 Platelet mean volume (Bld) [Entitic vol] 10.5 fL 6.2-12.0 [facility] Work Phone: Determination of erythrocyte mean corpuscular volume (MCV)on 07-15-2022 MCV (RBC) [Entitic vol] 90.5 fL 81-99 [facility] Work Phone: Direct bilirubinon 2 Bilirubin.direct [Mass/Vol] 0.06 mg/dL 0.00-0.30 [facility] Work Phone: Hematocrit Auto (Bld) [Volum e fraction]on 07-15-2022 Hematocrit (Bld) [Volume fraction] 41.0 % 37-47 [facility] Work Phone: Ketones Test strip Ql (U)on 07-15-2022 Ketones Ql (U) Negative Negative [facility] Work Phone: Laboratory - Chemistry and C hemistry - challengeon 07-15-2022 Albumin [Mass/Vol] 3.7 g/dL 2.9-4.4 [facility] Work Phone: ALP [Catalytic activity/Vol] 94 U/L 45-117 [facility] Work Phone: ALT [Catalytic activity/Vol] 28 U/L 13-56 [facility] Work Phone: Cholesterol.total/Choles terol in HDL [Mass ratio] 3.60 {ratio} [facility] Work Phone: CO2 [Moles/Vol] 26.0 mmol/L 21.0-32.0 [facility] Work Phone: Globulin (S) [Mass/Vol] 3.9 g/dL 2.2-4.2 [facility] Work Phone: Urea nitrogen/Creatinine [Mass ratio] 18.1 mg/mg 10-20 [facility] Work Phone: Laboratory - Hematology and Cell countson 07-15-2022 Erythrocyte distribution width (RBC) [Entitic vol] 40.8 fL 35.1-43.9 [facility] Work Phone: Erythrocyte distribution width (RBC) [Ratio] 12.4 % 11.6-14.6 [facility] Work Phone: MCH (RBC) [Entitic mass] 30.2 pg 27.0-32.0 [facility] Work Phone: Nucleated RBC/100 WBC (Bld) [Ratio] 0 % 0-5 [facility] Work Phone: MCHC Auto (RBC) [Mass/Vol]on 07-15-2022 MCHC (RBC) [Mass/Vol] 33.4 g/dL 32-36 [facility] Work Phone: Nitrite Test strip Ql (U)on 07-15-2022 Nitrite Ql (U) Negative Negative [facility] Work Phone: No Panel Informationon 07-15 Addendum Document Comment . [facility] Work Phone: Comment on above: The SPE pattern appe ars unremarkable. Evidence ofmonoclonal protein is not apparent. [id number] 0.3 g/dL 0.0-0.4 [facility] Work Phone: Phjfx-5-Gpgexmgwe 0.9 g/dL 0.4-1.0 [facility] Work Phone: C-Reactive Protein High Sensitivity 10.30 mg/L <3.00 [facility] Work Phone: Comment on above: Low Relative Risk of CVD <1.0 mg/L Average Relative Risk of CVD 1.0 - 3.0 mg/L High Relative Risk of CVD >3.0 mg/L Estimated GFR (MDRD) Amer 158 mL/min >60 [facility] Work Phone: Comment on above: GFR Calc Estimated GFR (MDRD) Non-Af Amer 130 mL/min >60 [facility] Work Phone: Comment on above: Non- GFR Calc Gamma Globulins 1.1 g/dL 0.4-1.8 [facility] Work Phone: Troponin I High Sensitivity 3 pg/mL 3.0-54.0 [facility] Work Phone: Comment on above: Please Note: New Anny t Units and Gender Specific Reference Ranges. For more information see Policy Stat Procedure [place] High Sensitivity Troponin (TNIH) and attachments. Platelets bldon 07-15-2022 Platelets (Bld) [#/Vol] 424 10*3/uL 150-450 [facility] Work Phone: Protein Fractions Elph [Inte rp]on 07-15-2022 Protein Fractions [Interp] Comment . [facility] Work Phone: Comment on above: Protein electrophore sis scan will follow via computer,mail, or publicist delivery. Protein Test strip Ql (U)on 07-15-2022 Protein Ql (U) 15 mg/dl Negative [facility] Work Phone: Segmented neutrophils/100 WB C Auto (Bld)on 07-15-2022 Segmented neutrophils/100 WBC (Bld) 50.8 % 47-70 [facility] Work Phone: Serum albumin to globulin ra renata by protein electrophoresison 07-15-2022 Albumin/Globulin Elph [Mass ratio] 1.1 0.7-1.7 [facility] Work Phone: Serum globulin measurement ( mass/volume)on 07-15-2022 Globulin (S) [Mass/Vol] 3.5 g/dL 2.2-3.9 [facility] Work Phone: Serum or plasma albumin florinda urement (mass/volume)on 07-15-2022 Albumin [Mass/Vol] 3.6 g/dL 3.2-5.0 [facility] Work Phone: Serum or plasma albumin/glob ulin mass ratioon 07-15-2022 Albumin/Globulin [Mass ratio] 0.9 {ratio} 0.9-2.4 [facility] Work Phone: Serum or plasma beta globuli n measurement by electrophoresis (mass/volume)on 07-15-2022 Beta globulin Elph [Mass/Vol] 1.2 g/dL 0.7-1.3 [facility] Work Phone: Serum or plasma calcium florinda urement (mass/volume)on 07-15-2022 Calcium [Mass/Vol] 8.9 mg/dL 8.5-10.1 [facility] Work Phone: Serum or plasma cholesterol in HDL measurement (mass/volume)on 07-15-2022 Cholesterol in HDL [Mass/Vol] 58 mg/dL >40 [facility] Work Phone: Comment on above: The drugs N-Acetylcy steine and Metamizole may falsely depress this assay. Reference Range HDL <40 mg/dL Low HDL Cholesterol HDL >or= 60 mg/dL High HDL Cholesterol Serum or plasma cholesterol in VLDL measurement (mass/volume)on 07-15-2022 Cholesterol in VLDL [Mass/Vol] 18 mg/dL 5-40 [facility] Work Phone: Serum or plasma creatinine m easurement (mass/volume)on 07-15-2022 Creatinine [Mass/Vol] 0.55 mg/dL 0.55-1.02 [facility] Work Phone: Comment on above: The validity of the calculated GFR & GFRAA in patients over 70 years has not been determined. Clinical correlation is essential. Serum or plasma low density lipoprotein (LDL) cholesterol measurement (mass/volume)on 07-15-2022 Cholesterol in LDL [Mass/Vol] 135 mg/dL 0-130 [facility] Work Phone: Serum or plasma urea nitroge n measurement (mass/volume)on 07-15-2022 Urea nitrogen [Mass/Vol] 10 mg/dL 7-18 [facility] Work Phone: Serum or plasma uric acid me asurement (mass/volume)on 07-15-2022 Urate [Mass/Vol] 5.1 mg/dL 2.6-6.0 [facility] Work Phone: Comment on above: The drugs N-Acetylcy steine and Metamizole may falsely depress this assay. Thin prep Papanicolaou smear with manual screeningon 07-15-2022 Thin prep Papanicolaou smear with manual screening 18 U/L 15-37 [facility] Work Phone: Thin prep Papanicolaou smear with manual screening 7 5-15 [facility] Work Phone: Thin prep Papanicolaou smear with manual screening 165 U/L 84-246 [facility] Work Phone: Thin prep Papanicolaou smear with manual screening See comment [facility] Work Phone: Comment on above: Result: Not Observed Total protein bloodon 2021 Protein [Mass/Vol] 7.2 g/dL 6.0-8.5 [facility] Work Phone: Urine albumin/total protein mass ratio by electrophoresison 07-15-2022 Albumin Elph (U) [Mass fraction] 27.8 % . [facility] Work Phone: Urine alpha 1 globulin/total protein ratio by electrophoresis (mass fraction)on 07-15-2022 Alpha 1 globulin Elph (U) [Mass fraction] 7.5 % . [facility] Work Phone: Urine blood detectionon 09-0 6-2022 RBC Ql (U) Negative Negative [facility] Work Phone: Urine clarityon 07-15-2022 Clarity (U) Clear Clear [facility] Work Phone: Urine color determinationon 07-15-2022 Color (U) Yellow Yellow [facility] Work Phone: Urine glucose detectionon Glucose Ql (U) Normal mg/dl Normal [facility] Work Phone: Urine leukocyte esterase det ection by dipstickon 07-15-2022 Leukocyte esterase Test strip Ql (U) 25 /ul Negative [facility] Work Phone: Urine monoclonal protein/tot al protein mass ratio by electrophoresison 07-15-2022 Protein.monoclonal Elph (U) [Mass fraction] See comment [facility] Work Phone: Comment on above: Result: Not Observed Urine pHon 07-15-2022 pH (U) 6.0 [pH] 5.0 - 8.0 [facility] Work Phone: Urine protein measurement (m ass/volume)on 07-15-2022 Protein (U) [Mass/Vol] 6.8 mg/dL Not Estab. [facility] Work Phone: Urine specific gravity measu rementon 07-15-2022 Specific gravity (U) [Rel density] 1.015 1.002-1.030 [facility] Work Phone: Urobilinogen Auto test strip Ql (U)on 07-15-2022 Urobilinogen Ql (U) Normal mg/dl Normal [facility] Work Phone: Laboratory - Microbiology an d Antimicrobial susceptibilityon 11-11-2021 SARS-CoV-2 (COVID-19) RNA MILADIS+probe Ql (Unsp spec) Not detected [facility] Work Phone: No Panel Informationon 11-11 POC Nasal Swab Influenza A,B Not detected [facility] Work Phone: POC Nasal Swab RSV Not detected [facility] Work Phone: Bacteria identified Cx Nom ( Wound) Wound Culture Staphylococcus equorum [facility] Work Phone: Gram stain for investigation of transfusion reaction Microscopic observation Gram stain Nom (Unsp spec) [facility] Work Phone: Vital Signs Date Time Vital Sign Value Performing Clinician Facility 05-17-2025 15:21-0400 Body height 162.[address] Maria G Bonilla DO Work Phone: [facility] 05-17-2025 15:21-0400 Body mass index (BMI) [Ratio] 29.5 kg/m2 Dr. Maria G Bonilla DO Work Phone: [facility] 05-17-2025 15:21-0400 Body weight 78.[address] Maria G Bonilla DO Work Phone: [facility] 05-17-2025 15:21-0400 Diastolic blood pressure 84 mm[Hg] Dr. Maria G Bonilla DO Work Phone: [facility] 05-17-2025 15:21-0400 Systolic blood pressure 133 mm[Hg] Dr. Maria G Bonilla DO Work Phone: [facility] [facility] 02-29-2024 13:50-0400 Body height 162.6 cm Maddie Owens MD Work Phone: [facility] 02-29-2024 13:50-0400 Body mass index (BMI) [Ratio] 29.52 kg/m2 Maddie Owens MD Work Phone: [facility] 02-29-2024 13:50-0400 Body temperature 98.91 [degF] Maddie Owens MD Work Phone: [facility] 02-29-2024 13:50-0400 Body weight 78.02 kg Maddie Owens MD Work Phone: [facility] 02-29-2024 13:50-0400 Diastolic blood pressure 82 mm[Hg] Maddie Owens MD Work Phone: [facility] 02-29-2024 13:50-0400 Heart rate 82 /min Maddie Owens MD Work Phone: [facility] 02-29-2024 13:50-0400 Systolic blood pressure 121 mm[Hg] Maddie Owens MD Work Phone: [facility] 09-17-2022 11:06-0500 Body height 162.[address] Maria G Bonilla Work Phone: [facility] Work Phone: 09-17-2022 11:06-0500 Body mass index (BMI) [Ratio] 27.8 kg/m2 Dr. Maria G Bonilla Work Phone: [facility] Work Phone: 09-17-2022 11:06-0500 Body weight 73.[address] Maria G Bonilla Work Phone: [facility] Work Phone: 09-17-2022 11:06-0500 Diastolic blood pressure 82 mm[Hg] Dr. Maria G Bonilla Work Phone: [facility] Work Phone: 09-17-2022 11:06-0500 Heart rate 90 /min Dr. Maria G Bonilla Work Phone: [facility] Work Phone: 09-17-2022 11:06-0500 Respiratory rate 16 /min Dr. Maria G Bonilla Work Phone: [facility] Work Phone: 09-17-2022 11:06-0500 Systolic blood pressure 136 mm[Hg] Dr. Maria G Bonilla Work Phone: [facility] Work Phone: 04-24-2022 14:48-0400 Body temperature 98.6 [degF] Dr. Maria G Bonilla Work Phone: [facility] Work Phone: 04-24-2022 14:48-0400 Diastolic blood pressure 66 mm[Hg] Dr. Maria G Bonilla Work Phone: [facility] Work Phone: 04-24-2022 14:48-0400 Heart rate 103 /min Dr. Maria G Bonilla Work Phone: [facility] Work Phone: 04-24-2022 14:48-0400 Respiratory rate 14 /min Dr. Maria G Bonilla Work Phone: [facility] Work Phone: 04-24-2022 14:48-0400 SaO2% (BldA) [Mass fraction] 99 % Dr. Maria G Bonilla Work Phone: [facility] Work Phone: 04-24-2022 14:48-0400 Systolic blood pressure 118 mm[Hg] Dr. Maria G Bonilla Work Phone: [facility] Work Phone: Encounters Encounter Date Encounter Type Care Provider Facility Start: 09-06-2025 ambulatory Health Risk Assessment Facility:[facility] Start: 05-24-2025 End: 05-24-[address] Maria G Bonilla DO Work Phone: -Outpatient Breast [facility] Start: 05-24-2025 End: 05-24-2025 Patient encounter procedure Seema GUY -[facility] Work Phone: Start: 05-24-2025 End: 05-24-2025 ambulatory Seema Gottlieb Facility:[facility] Start: 05-17-2025 End: 05-17-2025 Patient encounter procedure Seema GUY -[facility] Work Phone: Start: 05-17-2025 End: 05-17-2025 Patient encounter status Seema GUY [facility] Start: 05-17-2025 End: 05-17-[address] Maria G Bonilla DO Work Phone: -[facility] Start: 02-29-2024 End: 02-29-2024 ambulatory MADDIE OWENS Facility:[facility] Start: 02-29-2024 Chart abstracting Maddie Boles i, MD Work Phone: Rheumatology Comment on above: Abstract (Outside la b results) Start: 02-29-2024 End: 02-29-2024 Patient encounter procedure Maddie Owens MD Work Phone: Rheumatology Comment on above: Pain in joint, multi ple sites (Primary Dx); CRP elevated; Hair loss Start: 09-16-2023 End: 09-16-2023 ambulatory [facility] Work Phone: Start: 09-16-2023 End: 09-16-2023 Patient encounter procedure [facility] Work Phone: Start: 09-14-2023 Registered Referred [facility] Start: 03-04-2023 Patient encounter procedure [facility] Start: 10-13-2022 End: 10-13-[address] Maria G Bonilla Work Phone: [facility] Work Phone: Start: 10-13-2022 End: 10-13-[address] Maria G Bonilla Work Phone: [facility]Radiology, [facility] Start: 09-22-2022 Non-patient / Non-visit Dr. Berta Bonilla Work Phone: [facility] Start: 09-22-2022 End: 09-22-[address] Maria G Bonilla Work Phone: [facility] Work Phone: Start: 09-22-2022 End: 09-22-[address] Maria G Bonilla Work Phone: [facility]Cardi[facility] Start: 09-17-2022 End: 09-17-[address] Maria G Bonilla Work Phone: [facility] Start: 09-10-2022 Non-patient / Non-visit Dr. Berta Bonilla Work Phone: [facility] Start: 08-08-2022 End: 08-08-[address] Maria G Bonilla Work Phone: [facility] Work Phone: Start: 08-08-2022 End: 08-08-[address] Maria G Bonilla Work Phone: [facility]/Neurology Start: 08-08-2022 Non-patient / Non-visit Dr. Berta Bonilla Work Phone: [facility] Start: 07-29-2022 End: 07-29-[address] Maria G Bonilla Work Phone: [facility] Start: 07-15-[address] Maria G goncalves Work Phone: [facility] Start: 07-15-2022 End: 07-15-[address] Maria G Bonilla Work Phone: [facility] Work Phone: Start: 07-15-2022 End: 07-15-[address] Maria G Bonilla Work Phone: [facility] Start: 04-25-2022 End: 04-25-[address] Maria G Bonilla Work Phone: [facility] Start: 04-24-2022 End: 04-24-[address] Maria G Bonilla Work Phone: [facility] Start: 11-11-2021 End: 11-11-[address] Maria G Bonilla Work Phone: [facility] Start: 10-22-2021 End: 10-22-[address] Maria G Bonilla Work Phone: [facility], [facility] Procedures Date Procedure Procedure Detail Performing Clinician Start: 05-24-2025 Screening mammography D bharat Bonilla DO Work Phone: Start: 10-13-2022 Plain x-ray of wrist Dr Eric Bonilla Work Phone: Start: 10-13-2022 Plain x-ray of hand Dr. Maria G Bonilla Work Phone: Investigation of transfusion reaction Dr. Maria G Bonilla Work Phone: Microbial culture, routine D bharat Bonilla Work Phone: Plan of Treatment Date Care Activity Detail Author Start: 05-24-2025 MG Breast - bilateral Screening [facility] Start: 02-29-2024 End: 05-30-2024 Alanine aminotransferase [Enzymatic activity/volume] in Serum or Plasma ALANINE AMINOTRANSFERASE / SGPT Lab Routine Pain in joint, multiple sites Expected: 02/29/2024, Expires: 05/30/2024 [facility] Comment on above: Expected: 02/29/2024, Expires: 4 Start: 02-29-2024 End: 05-30-2024 AIXA BY IFA SCREEN AIXA BY IFA SCREEN Lab Routine Pain in joint, multiple sites Expected: 02/29/2024, Expires: 05/30/2024 [facility] Comment on above: Expected: 02/29/2024, Expires: Start: 02-29-2024 End: 05-30-2024 Aspartate aminotransferase [Enzymatic activity/volume] in Serum or Plasma ASPARTATE AMINOTRANSFERASE/SGOT Lab Routine Pain in joint, multiple sites Expected: 02/29/2024, Expires: 05/30/2024 [facility] Comment on above: Expected: 02/29/2024, Expires: Start: 02-29-2024 End: 05-30-2024 C reactive protein [Mass/volume] in Serum or Plasma C-REACTIVE PROTEIN Lab Routine Pain in joint, multiple sites Expected: 02/29/2024, Expires: 05/30/2024 [facility] Comment on above: Expected: 02/29/2024, Expires: Start: 02-29-2024 End: 05-30-2024 CBC panel - Blood by Automated count COMPLETE BLOOD COUNT Lab Routine Pain in joint, multiple sites Expected: 02/29/2024, Expires: 05/30/2024 [facility] Comment on above: Expected: 02/29/2024, Expires: Start: 02-29-2024 End: 05-30-2024 Complement C3 [Mass/volume] in Serum or Plasma C3 COMPLEMENT Lab Routine Pain in joint, multiple sites Expected: 02/29/2024, Expires: 05/30/2024 [facility] Comment on above: Expected: 02/29/2024, Expires: Start: 02-29-2024 End: 05-30-2024 Complement C4 [Mass/volume] in Serum or Plasma C4 COMPLEMENT Lab Routine Pain in joint, multiple sites Expected: 02/29/2024, Expires: 05/30/2024 [facility] Comment on above: Expected: 02/29/2024, Expires: Start: 02-29-2024 End: 05-30-2024 Creatine kinase [Enzymatic activity/volume] in Serum or Plasma CREATINE KINASE/CK Lab Routine Pain in joint, multiple sites CRP elevated Hair loss Expected: 02/29/2024, Expires: 05/30/2024 [facility] Comment on above: Expected: 02/29/2024, Expires: Start: 02-29-2024 End: 05-30-2024 CREATININE BLD CREATININE BLD Lab Routine Pain in joint, multiple sites Expected: 02/29/2024, Expires: 05/30/2024 [facility] Comment on above: Expected: 02/29/2024, Expires: Start: 02-29-2024 End: 05-30-2024 Cyclic citrullinated peptide IgG Ab [Units/volume] in Serum or Plasma CCP ANTIBODY IGG Lab Routine Pain in joint, multiple sites Expected: 02/29/2024, Expires: 05/30/2024 [facility] Comment on above: Expected: 02/29/2024, Expires: Start: 02-29-2024 End: 05-30-2024 DNA double strand Ab [Units/volume] in Serum by Immunoassay DNA AB DS + CONF BLD Lab Routine Pain in joint, multiple sites Expected: 02/29/2024, Expires: 05/30/2024 [facility] Comment on above: Expected: 02/29/2024, Expires: Start: 02-29-2024 End: 05-30-2024 Erythrocyte sedimentation rate SEDIMENTATION RATE, WESTERGREN Lab Routine Pain in joint, multiple sites Expected: 02/29/2024, Expires: 05/30/2024 [facility] Work Phone: Comment on above: Expected: 02/29/2024, Expires: Start: 02-29-2024 End: 05-30-2024 Extractable nuclear Ab panel - Serum ANTI HADLEY ID Lab Routine Pain in joint, multiple sites Expected: 02/29/2024, Expires: 05/30/2024 [facility] Comment on above: Expected: 02/29/2024, Expires: Start: 02-29-2024 End: 05-30-2024 HEMOGLOBIN/BLOOD UR HEMOGLOBIN/BLOOD UR Lab Routine Pain in joint, multiple sites Expected: 02/29/2024, Expires: 05/30/2024 [facility] Comment on above: Expected: 02/29/2024, Expires: Start: 02-29-2024 End: 05-30-2024 IgA [Mass/volume] in Serum or Plasma IMMUNOGLOBULIN A Lab Routine Pain in joint, multiple sites CRP elevated Hair loss Expected: 02/29/2024, Expires: 05/30/2024 [facility] Comment on above: Expected: 02/29/2024, Expires: Start: 02-29-2024 End: 05-30-2024 Protein/Creatinine [Mass Ratio] in Urine PROTEIN / CREATININE RATIO Lab Routine Pain in joint, multiple sites Expected: 02/29/2024, Expires: 05/30/2024 [facility] Comment on above: Expected: 02/29/2024, Expires: 4 Start: 02-29-2024 End: 05-30-2024 Rheumatoid factor [Units/volume] in Serum or Plasma RHEUMATOID FACTOR Lab Routine Pain in joint, multiple sites Expected: 02/29/2024, Expires: 05/30/2024 [facility] Comment on above: Expected: 02/29/2024, Expires: 4 Start: 02-29-2024 End: 05-30-2024 Thyrotropin [Units/volume] in Serum or Plasma THYROID STIMULATING HORMONE Lab Routine Pain in joint, multiple sites CRP elevated Hair loss Expected: 02/29/2024, Expires: 05/30/2024 [facility] Comment on above: Expected: 02/29/2024, Expires: 4 Start: 02-29-2024 End: 05-30-2024 Tissue transglutaminase IgA Ab [Units/volume] in Serum TRANSGLUTAMINASE IGA Lab Routine Pain in joint, multiple sites CRP elevated Hair loss Expected: 02/29/2024, Expires: 05/30/2024 [facility] Comment on above: Expected: 02/29/2024, Expires: Start: 11-09-2023 Behavioral Health Screening Behavioral Health Screening [facility] Start: 2023 Screening for malignant neoplasm of breast Mammogram Screening [facility] Start: 07-10-2023 Covid-19 Vaccine () Covid-19 Vaccine () [facility] Start: 2013 Screening for malignant neoplasm of cervix HPV Testing [facility] Start: 2004 Screening for malignant neoplasm of cervix Pap Testing [facility] Start: 2002 Hepatitis B Vaccine (1 of 3 - 19+ 3-dose series) Hepatitis B Vaccine (1 of 3 - 19+ 3-dose series) [facility] Start: 2002 Urine microalbumin profile DTaP,Tdap,Td Vaccine (1 - Tdap) [facility] Start: 2001 Hepatitis C screening Hepatitis C Screening [facility] Start: 2001 HIV screening HIV Screening [facility] End: 05-22-2025 XR Hand - bilateral PA and Lateral and Oblique XR HAND GENERAL 3V PA/LAT/OBL BILATERAL Radiology Routine Pain in joint, multiple sites 1 Occurrences starting 02/29/2024 until 03/30/2025 [facility] Comment on above: 1 Occurrences starting 02/29/2024 until 03/30/2025 End: 03-30-2025 XR Sacroiliac Joint Views XR SACROILIAC JOINTS 2V AP PELVIS/FERGUESON Radiology Routine Pain in joint, multiple sites 1 Occurrences starting 02/29/2024 until 03/30/2025 [facility] Comment on above: 1 Occurrences starting 02/29/2024 until 03/30/2025 Immunizations Immunization Date Immunization Notes Care Provider Marcus tyler 10-03-2024 influenza, seasonal, injectable, preservative free Dr. Maria G Bonilla DO Work Phone: [facility] 08-12-2023 influenza, injectabl e, quadrivalent, preservative free [facility] 09-15-2022 influenza, injectabl e, quadrivalent, preservative free [facility] 09-15-2022 influenza, seasonal, injectable Dr. Maria G Bonilla Work Phone: [facility] Work Phone: 09-11-2021 Covid (Moderna) Dr. Maria G navarro Work Phone: [facility] 09-11-2021 influenza, injectabl e, quadrivalent, preservative free [facility] 09-11-2021 influenza, seasonal, injectable Dr. Maria G Bonilla Work Phone: [facility] Work Phone: 12-12-2020 Covid (Moderna) Dr. Maria G navarro Work Phone: [facility] 11-14-2020 Covid (Moderna) Dr. Maria G navarro Work Phone: [facility] 08-07-2020 influenza, injectabl e, quadrivalent, preservative free [facility] 08-07-2020 influenza, seasonal, injectable Dr. Maria G Bonilla Work Phone: [facility] Work Phone: 08-04-2019 influenza, injectabl e, quadrivalent, preservative free [facility] 08-04-2019 influenza, seasonal, injectable Dr. Maria G Bonilla Work Phone: [facility] Work Phone: 08-23-2018 influenza, injectabl e, quadrivalent, preservative free [facility] 08-23-2018 influenza, seasonal, injectable Dr. Maria G Bonilla Work Phone: [facility] Work Phone: 08-05-2017 influenza, injectabl e, quadrivalent, preservative free [facility] 08-05-2017 influenza, seasonal, injectable Dr. Maria G Bonilla Work Phone: [facility] Work Phone: 08-07-2016 influenza, injectabl e, quadrivalent, preservative free [facility] 08-07-2016 influenza, seasonal, injectable Dr. Maria G Bonilla Work Phone: [facility] Work Phone: 08-09-2015 influenza, injectabl e, quadrivalent, preservative free [facility] 08-09-2015 influenza, seasonal, injectable Dr. Maria G Bonilla Work Phone: [facility] Work Phone: 08-03-2014 influenza, injectabl e, quadrivalent, preservative free [facility] 08-03-2014 influenza, seasonal, injectable Dr. Maria G Bonilla Work Phone: [facility] Work Phone: Payers Date Payer Category Payer Self-pay [id number] 2022 Private Health Insurance [facility] Vivienne [facility] [id number] 2022-[facility] [phone] [address] [place] [id number] PPO [id number] 2022 Unknown [id number] 2015 [id number] Unknown [id number] Unknown [id number] Social History Date Type Detail Facility Start: 07-10-2021 End: 03-04-2023 Tobacco smoking status NHIS Unknown if ever smoked [facility] Start: 1985 Sex Assigned At Female [facility] Start: 02-29-2024 History of Social function [facility] Start: 02-29-2024 Area Deprivation Index Area De privation Index Answer Date Recorded National Score (1-100), lower number is lower risk 57 02/29/2024 State Score (1-10), lower number is lower risk 3 02/29/2024 Data from: https://www.neighborhood atlas.medicine.[facility].edu/ . Last address used for calculation [address] 02/29/2024 [facility] National Score (1-10 0), lower number is lower risk 57 [facility] Start: 02-29-2024 Gender identity Identifies as female gender (finding) [facility] Start: 02-29-2024 Sexual orientation Heterosexual (fin ding) [facility] Start: 05-17-2025 Tobacco smoking stat us NHIS Never smoked tobacco (finding) [facility] Clinical Notes 02-29-2024 to 05-17-2025 Note Date & Type Note Facility 05-17-2025 Evaluation note Diagnosis Onset Date Resolution Contraception management acute May 17, 2025 3:17pm Encounter for routine gynecological examination noneactive May 17, 2025 3:17pm [facility] Work Phone: 1(470) 281-337407-09-2025 [facility] [address] [place] [address], [address] [place] [id number] OFFICE VISIT Date of Service: 05/17/25 MR#: [id number] Acct: [id number] Name: RENNY ESTRADA Rep #: [id number] : 1985 Provider: BROOKS Gottlieb Age/Sex: 39/F Location: [place] Status: Signed Intake Vital Signs 03/09/24 13:07 05/17/25 15:21 Height 5 ft 4 in 5 ft 4 in Weight: 172 lb 2 oz BMI 29.5 BP 133/84 H 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 Is patient in pain?: No Allergies No Known Allergies Allergy (Verified 05/17/25 15:19) Medications ?Medication ?Instructions ?Recorded ?Confirmed ?Type escitalopram oxalate 5 mg tablet 5 mg PO DAILY 1 05/17/25 History (Lexapro) cyclobenzaprine 5 mg tablet 5 mg PO DAILY PRN muscle s pasm 09/10/22 05/17/25 History omeprazole 20 mg capsule,delayed 20 mg PO DAILY PRN 05/17/25 History release oxybutynin chloride 5 mg 5 mg PO DAILY PRN 09/10/22 0 05/17/25 History tablet,extended release 24 hr (Ditropan XL) norethindrone (contraceptive) 0.35 0.35 mg PO DAILY #8 4 tabs 05/17/25 05/17/25 Rx mg tablet Is last menstrual period known: Yes Last Menstrual Period: 05/06/25 Post menopausal: No Patient : No : No Control Method: ocp PFSH Medical History (Updated 05/17/25 @ 15:45 by BROOKS Schmid) Contraception management Women's annual routine gynecological examination Stress incontinence Dyslipidemia Family history of coronary artery disease Elevated high sensitivity C-reactive protein Carpal tunnel syndrome of right wrist Low back pain Cellulitis of left leg Encounter for screening for COVID-19 Acute upper respiratory infection Anxiety Family History Father Arthritis Anxiety Asthma Depression Heart disease Hypertension Hyperlipidemia Angina pectoris Psychiatric care COPD (chronic obstructive pulmonary disease) CHF (congestive heart failure) ICD (implantable cardioverter-defibrillator) in place Mother Anxiety Depression Alcoholism Sister Depression Psychiatric care Grandmother Arthritis Asthma Cancer Grandfather Heart disease Hypertension Hyperlipidemia Social History (Updated 05/17/25 @ 15:24 by Génesis Boone) adopted: No household members: spouse and children number of children: 3 current occupational status: employed 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 Date Name GA/Weeks Outcome Route Bth Weight Infant Gen Labor Lgth Anesthesia Del Locatn Provider FOB Unknown Neveah Unknown Iliana Unknown Will HPI Encounter for routine gynecological examination Details: RENNY ESTRADA is a 39 year old who presents for annual exam. She reports no issues or concerns today. Last PAP: 2022; normal. History of abnormal PAP: no Last mammogram: 2023; normal. History of abnormal mammogram: no Colon cancer screening: age 43 Other preventative health care screenings: Maria G Bonilla; PCP Female Reproductive History Last Menstrual Period: 05/06/25 Cycle Length: 21-35 Bleeding Duration: 5 Questions: metorrhagia: No, sexually active: Yes, dyspareunia: Yes (occasional) and PCB: No ROS Const Constitutional: Denies chills, fatigue, fever(s), headache(s) or weight loss Eyes Eyes: Denies change in vision ENT ENT: Denies dizziness Cardio Card: Denies chest pain at rest or palpitations Resp Resp: Denies cough, dyspnea or dyspnea on exertion GI GI: Denies abdominal pain, constipation or nausea : Denies difficulty voiding, dysuria, hematuria, pelvic pain, prolapse symptoms, urinary incontinence, vaginal discharge, vaginal dryness, vaginal odoror vaginal pruritus Skin Skin/Breast: Denies alopecia or rash Neuro Neuro: Denies dizziness Psych Psych: Reports anxiety (controlled with medications); Denies depression Endo Endo: Denies cold intolerance, excessive sweating or heat intolerance Exam Const General: cooperative, healthy appearing, comfortable, no acute distress, well groomed and well hydrated Nutritional Appearance: well nourished Orientation: alert, awake and oriented x3 HENMT Head: normal to inspection and normocephalic Ears: hearing grossly normal bilaterally and external ears normal Nose: external nose normal Face and sinus: normal facial exam Eyes General: appearance normal, both eyes and all related structures Neck Neck: normal visual inspection, full ROM and no lymphadenopathy Thyroid: thyroid normal Chest Chest palpation & inspection: normal inspection of the chest Breast inspection: normal inspection of the breasts and normal inspection of theaxillae Breast palpation: normal palpation of the breasts, normal palpation of the axillae and no axillary lymphadenopathy Resp Effort & Inspection: normal respiratory effort, able to speak in complete sentences and symmetric chest movement GI Inspection: normal to inspection Palpation: soft and no hepatosplenomegaly General: bladder normal to palpation External Female Exam: normal external appearance and normal appearance of the urethra Urethra: normal appearance of the urethra Speculum Exam - Vagina: normal appearance of the vagina, normal vaginal discharge, no lesions and nontender Speculum Exam - Cervix: normal appearance of the cervix, no lesions and no masses Bimanual Exam- Vagina & Uterus: normal bimanual exam, uterine size normal, bladder normal to palpation, normal palpation and non-tender Bimanual Exam- Adnexa, other: normal adnexae, no masses, normal and non-tender Pelvic Support: normal Skin General: no rashes or lesions noted Neuro General: patient alert, patient awake, patient oriented x3 and moves all extremities Psych Appearance: grossly normal Mental Status: mental status grossly normal Affect: normal affect Speech and Movement: speech and movement normal Attitude: cooperative Coding Level of Care Code Established Pt Off vis,est,prev 40-64yrs Patient Type Established Diagnoses Encounter for routine gynecological examination Z01.419 Contraception management Z30.9 Assessment and Plan Assessment and Plan (1) Encounter for routine gynecological examination: Plan: Breast and pelvic exam complete. PAP due: UTD; completed in 2022 Mammogram due: orders placed to obtain Advised self breast exams monthly. Contraception: POP; refills sent today. Advised incorporating healthy dietary choices such as increase in lean meats, fruits/vegetables, less processed food/sat fat/trans fats. Increase exercise to 30 minutes per day/5 days a week. This can include both weight bearing exercisesand/or brisk walking. Follow up with PCP for further preventative health screenings. 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 Call office sooner with questions or concerns. (2) Contraception management: Status: Acute Comment: elevated BP in office MEC level 3. will transition to POP Plan: norethindrone; refills sent. Orders: Orders SCRN MAMM (CAD)W/SHAUNA BILAT 05/24/25 Z12.31 - Encounter for screening mammogramfor malignant neoplasm of breast Medications: Refilled norethindrone (contraceptive) 0.35 mg PO DAILY 84 tabs 4RF 05/17/25 1546 n BROOKS> Date _ Seema GUY Cosigner Signature: Date (if applicable) CC: ~ [facility]07-09-2025 Progress note Author Seema Gottlieb [facility] Note Date/Time May 17, 2025 3:46p [facility] [address], [address] [place] [address] OFFICE VISIT Date of Service: 05/17/25 MR#: [id number] Acct: [id number] Name: RENNY ESTRADA Rep #: [id number] : 1985 Provider: BROOKS Gottlieb Age/Sex: 39/F Location: [place] Status: Signed Intake Vital Signs 03/09/24 13:07 05/17/25 15:21 Height 5 ft 4 in 5 ft 4 in Weight: 172 lb 2 oz BMI 29.5 BP 133/84 H 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 Is patient in pain?: No Allergies No Known Allergies Allergy (Verified 05/17/25 15:19) Medications ?Medication ?Instructions ?Recorded ?Confirmed ?Type escitalopram oxalate 5 mg tablet 5 mg PO DAILY 1 05/17/25 History (Lexapro) cyclobenzaprine 5 mg tablet 5 mg PO DAILY PRN muscle s pasm 09/10/22 05/17/25 History omeprazole 20 mg capsule,delayed 20 mg PO DAILY PRN 05/17/25 History release oxybutynin chloride 5 mg 5 mg PO DAILY PRN 09/10/22 0 05/17/25 History tablet,extended release 24 hr (Ditropan XL) norethindrone (contraceptive) 0.35 0.35 mg PO DAILY #8 4 tabs 05/17/25 05/17/25 Rx mg tablet Is last menstrual period known: Yes Last Menstrual Period: 05/06/25 Post menopausal: No Patient : No : No Control Method: ocp [facility] Medical History (Updated 05/17/25 @ 15:45 by Seema Gottlieb NP-C) Contraception management Women's annual routine gynecological examination Stress incontinence Dyslipidemia Family history of coronary artery disease Elevated high sensitivity C-reactive protein Carpal tunnel syndrome of right wrist Low back pain Cellulitis of left leg Encounter for screening for COVID-19 Acute upper respiratory infection Anxiety Family History Father Arthritis Anxiety Asthma Depression Heart disease Hypertension Hyperlipidemia Angina pectoris Psychiatric care COPD (chronic obstructive pulmonary disease) CHF (congestive heart failure) ICD (implantable cardioverter-defibrillator) in place Mother Anxiety Depression Alcoholism Sister Depression Psychiatric care Grandmother Arthritis Asthma Cancer Grandfather Heart disease Hypertension Hyperlipidemia Social History (Updated 05/17/25 @ 15:24 by Génesis Boone) adopted: No household members: spouse and children number of children: 3 current occupational status: employed 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 Date Name GA/Weeks Outcome Route Bth Weight Infant Gen Labor Lgth Anesthesia Del Locatn Provider FOB Unknown Neveah Unknown Iliana Unknown Will HPI Encounter for routine gynecological examination Details: RENNY ESTRADA is a 39 year old who presents for annual exam. She reports no issues or concerns today. Last PAP: 2022; normal. History of abnormal PAP: no Last mammogram: 2023; normal. History of abnormal mammogram: no Colon cancer screening: age 43 Other preventative health care screenings: Maria G Bonilla; PCP Female Reproductive History Last Menstrual Period: 05/06/25 Cycle Length: 21-35 Bleeding Duration: 5 Questions: metorrhagia: No, sexually active: Yes, dyspareunia: Yes (occasional) and PCB: No ROS Const Constitutional: Denies chills, fatigue, fever(s), headache(s) or weight loss Eyes Eyes: Denies change in vision ENT ENT: Denies dizziness Cardio Card: Denies chest pain at rest or palpitations Resp Resp: Denies cough, dyspnea or dyspnea on exertion GI GI: Denies abdominal pain, constipation or nausea : Denies difficulty voiding, dysuria, hematuria, pelvic pain, prolapse symptoms, urinary incontinence, vaginal discharge, vaginal dryness, vaginal odoror vaginal pruritus Skin Skin/Breast: Denies alopecia or rash Neuro Neuro: Denies dizziness Psych Psych: Reports anxiety (controlled with medications); Denies depression Endo Endo: Denies cold intolerance, excessive sweating or heat intolerance Exam Const General: cooperative, healthy appearing, comfortable, no acute distress, well groomed and well hydrated Nutritional Appearance: well nourished Orientation: alert, awake and oriented x3 HENMT Head: normal to inspection and normocephalic Ears: hearing grossly normal bilaterally and external ears normal Nose: external nose normal Face and sinus: normal facial exam Eyes General: appearance normal, both eyes and all related structures Neck Neck: normal visual inspection, full ROM and no lymphadenopathy Thyroid: thyroid normal Chest Chest palpation & inspection: normal inspection of the chest Breast inspection: normal inspection of the breasts and normal inspection of theaxillae Breast palpation: normal palpation of the breasts, normal palpation of the axillae and no axillary lymphadenopathy Resp Effort & Inspection: normal respiratory effort, able to speak in complete sentences and symmetric chest movement GI Inspection: normal to inspection Palpation: soft and no hepatosplenomegaly General: bladder normal to palpation External Female Exam: normal external appearance and normal appearance of the urethra Urethra: normal appearance of the urethra Speculum Exam - Vagina: normal appearance of the vagina, normal vaginal discharge, no lesions and nontender Speculum Exam - Cervix: normal appearance of the cervix, no lesions and no masses Bimanual Exam- Vagina & Uterus: normal bimanual exam, uterine size normal, bladder normal to palpation, normal palpation and non-tender Bimanual Exam- Adnexa, other: normal adnexae, no masses, normal and non-tender Pelvic Support: normal Skin General: no rashes or lesions noted Neuro General: patient alert, patient awake, patient oriented x3 and moves all extremities Psych Appearance: grossly normal Mental Status: mental status grossly normal Affect: normal affect Speech and Movement: speech and movement normal Attitude: cooperative Coding Level of Care Code Established Pt Off vis,est,prev 40-64yrs Patient Type Established Diagnoses Encounter for routine gynecological examination Z01.419 Contraception management Z30.9 Assessment and Plan Assessment and Plan (1) Encounter for routine gynecological examination: Plan: Breast and pelvic exam complete. PAP due: UTD; completed in 2022 Mammogram due: orders placed to obtain Advised self breast exams monthly. Contraception: POP; refills sent today. Advised incorporating healthy dietary choices such as increase in lean meats, fruits/vegetables, less processed food/sat fat/trans fats. Increase exercise to 30 minutes per day/5 days a week. This can include both weight bearing exercisesand/or brisk walking. Follow up with PCP for further preventative health screenings. 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 Call office sooner with questions or concerns. (2) Contraception management: Status: Acute Comment: elevated BP in office MEC level 3. will transition to POP Plan: norethindrone; refills sent. Orders: Orders SCRN MAMM (CAD)W/SHAUNA DIANA 05/24/25 Z12.31 - Encounter for screening mammogramfor malignant neoplasm of breast Medications: Refilled norethindrone (contraceptive) 0.35 mg PO DAILY 84 tabs 4RF 05/17/25 1546 <Electronically signed by Seema GUY> Date _ Seema GUY Cosigner Signature: Date (if applicable) CC: ~ [facility] Work Phone: [phone] 429-852404-22-2024 NoteHNO ID: [id number] Author: MADDIE OWENS MD Service: ? Author Type: Physician Type: Progress Notes Filed: 02/29/2024 15:09 Note Text: On 02/29/2024, I had the pleasure of seeing Renny Estrada at the [facility]. Renny Estrada was referred for an opinion and advice regarding elevated CRP. My findings and final recommendations will be communicated to the requesting health care provider by way of the shared medical record for internal providers or letter via the [employer] for external providers. 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 - In ', had covid. Nose sores intermittently thereafter. - Since , with worsening joint pain affecting the shoulders, wrists and knees. Worse with activity. Initial activity after awakening helps. Worst time of day is evening. - Also with pain in the neck and low back. Hip pain and sciatic pain worse with activity (happen at the same time). Worse with activity - Today, reports no recent oral steroids. - Takes ibuprofen and flexeril for pain which help - Morning stiffness x30 minutes - Photosensitivity (face/chest) but more heat related, even with warm shower. - Nose sores and hair loss x15 yrs, worse in the past 2 yrs. - No rash PMH/PSH: GERD Anxiety Tension ARAMBULA Migraines Ovarian cysts ALLERGIES: NKDA MEDICATIONS: Current Outpatient Medications Medication Sig escitalopram oxalate (LEXAPRO) 5 mg tablet Take 5 mg by mouth once daily. Norethindrone, Contraceptive, 0.35 mg tablet Take 1 tablet by mouth once daily. cyclobenzaprine (FLEXERIL) 5 mg tablet Take by mouth three times a day. IBUPROFEN ORAL Take by mouth. No current facility-administered medications for this visit. FAMILY HISTORY: Paternal great grandmother- RA Paternal great grandfather- MS Paternal aunt- OA SOCIAL HISTORY: Lives in [place] with spouse. 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 3 kids: 15, 17 and 19 yo. Tobacco use: None Alcohol use: 5-6 drinks/week Drug use: None REVIEW OF SYSTEMS: reviewed 08/22 systems, as above and as below: Joint pain, hair loss, dry eyes, neck/back pain, morning stiffness, nose sores, ARAMBULA, vision changes, GERD PHYSICAL EXAM: VITALS: Blood pressure 121/82, pulse 82, temperature 37.2 ?C (98.9 ?F), temperature source Temporal, height 162.6 cm (5' 4), weight 78 kg (172 lb). CONSTITUTIONAL: Well-appearing, in NAD. SKIN: Nonspecific facial erythema with nasolabial involvement. No alopecia. No sclerodactyly, calcinosis, telangiectasias, digital ulcers, or skin thickening. EYES: No scleral icterus or conjunctivitis ENT and Mouth: External ears normal. Nares normal. No oral ulcers RESPIRATORY: Normal breath sounds, clear to auscultation. CARDIOVASCULAR: Regular rate and rhythm, no murmurs or rubs EXTREMITIES/LYMPH: No edema bilaterally NEURO: Awake, alert and oriented, Normal gait MUSCULOSKELETAL: JOINT APPEARANCE: No erythema or warmth of any upper or lower extremity joint. RANGE OF MOTION: Able to fully close fists and curl fingers bilaterally. SWOLLEN JOINTS/SYNOVITIS: No synovitis of any joint. TENDER JOINTS: Tenderness to palpation of the L SI joint Widespread Pain Index: 10 (0-19) Symptoms Severity Scale: 8 (0-12) WPI>7 and SS Scale>5 OR WPI 3-6 and SS Scale >9 consistent with fibromyalgia LABORATORY: *Sep nl WBC, Hgb, Plt, Cr, ALT, AST 09/16/23 HS CRP 8.23 H >3.0 high relative risk 07/15/22 HS CRP 10.30 H >3.0 high relative risk 08/27/21 CRP 12.30 H 0.0-3.0 Unremarkable ESR, RF, CCP, AIXA, 01/18/21 CRP 10.70 H 0.0-3.0 STUDIES: none available for review IMPRESSION and PLAN: 1. Joint pain: Pain in the shoulders, hips and knees without clear evidence for inflammatory arthritis per history or exam. Will assess further for inflammatory arthritis via labs, x-rays and diagnostic prednisone trial as below. With nonspecific facial erythema and flushing that occurs with feeling warm (more than UV light exposure). Will screen for SLE, RA and celiac. Explained that she does meet criteria for fibromyalgia. - Extensively explained the clinical scenario as above - Check labs and x-rays. Notify of results via [employer] - Attempt a diagnostic trial of prednisone 20mg daily x5 days to see if any improvement in joint pain. If there is a significant improvement, this could suggest an inflammatory component of pain which may suggest a diagnosis of inflammatory arthritis. Explained potential side effects including increased appetite, upset stomach (advised taking with food), insomnia (advised taking in morning), increased infection risk, elevated blood glucose levels, elevated blood pressure, palpitations, mood changes and to avoid NSAIDs while on prednisone, tylenol prn ok. Advi (more content not included)...[facility]04-22-2024 Instructions* Patient Instructions* Maddie Owens MD - 02/29/2024 2:40 PM EDT Treatment Recommendations for Fibromyalgia developed by Dr. Buzz Acharya M.D. 1. Medications: We recommend first trying a tricyclic antidepressant such as cyclobenzaprine (Flexeril) or amitriptyline (Elavil) in patients who have not yet had an adequate trial of this class of medications. We prefer Flexeril. Although Flexeril is generally marketed as a muscle relaxant, the similarities in chemical structure to the tricyclic antidepressants make it a very useful medication to treat pain and it can also be helpful for treating sleep disturbance. Begin Flexeril at a dose of 5 mg 2-3 hours before bedtime. Taking the medication in this fashion can help decrease morning grogginess. Increase the dose by 5 mg every week as tolerated until a total dose of 20 mg is achieved. Increased fluid intake may decrease the incidence of dry mouth and constipation. Patients should also be warned about potential weight gain. Amitriptyline (Elavil) can be used similarly in doses starting at 10 mg before bedtime, increasing by 10 mg weekly as tolerated up to 50 mg. Nortriptyline is also a good choice for many people. If maximum tolerated doses of trycyclics are not providing adequate pain relief, we recommend addition (if Flexeril/Elavil is helping) or substitution of a dual reuptake inhibitor such as Cymbalta (duloxetine) or Savella (milnacipran). Such drugs may be the drug of first choice in fibromyalgia patients with prominent depression or fatigue, as they often work well for these co-morbid symptoms (in addition to treating pain). Begin Cymbalta at 30 mg once daily with food. The dose can eventually beincreased up to a total of 120 mg per day as tolerated, taken either as a single night time dose orb.i.d. Begin Savella at 25 mg, slowly increasing the dose as tolerated to a maximum of 100mg daily (e.g. 50 mg b.i.d.). Both drugs may initially cause nausea, palpitations, and other noradrenergic side effects, so patients should be instructed that this may happen. These side effects usually resolve over time. Another class of medication with proven efficacy in fibromyalgia are the [id number] ligands, Neurontin (gabapentin) and Lyrica (pregabalin). This class of drug might be the best first choice for afibromyalgia patient with prominent sleep problems. Lyrica is specifically approved for fibromyalgia, at doses of both 300 and 450mg. For Neurontin, doses typically in the range of 1500 - 3000 mg arenecessary to treat pain. Both drugs are better tolerated if most or even all of the dose is taken at bedtime (e.g. 150 mg in the morning and 300 mg at night for Lyrica, or 600 mg in the morning and 1200 mg at night for Neurontin). Some of the other medications that can be helpful in some fibromyalgia patients are higher doses ofolder SSRI s such as Prozac, Zoloft, or Paxil. Dosages higher than those typically used for treating depression (e.g. 40 - 50 mg of Prozac) are often necessary as it appears that at these higher dosages the important noradrenergic activity of these drugs becomes more prominent. Gamma hydroxybutyrate (particularly in those with significant sleep problems) and dopamine agonists (in those with co-morbid restless leg syndrome) can also be helpful in subsets of fibromyalgia patients. 2. Non-pharmacologic management: Activity/exercise. A rodriguez aspect of fibromyalgia management is for the patient to appreciate that when their symptom(s) decrease in response to pharmacologic therapy, they must correspondingly increase their function. For example, when medication(s) diminishes pain, fatigue or other symptoms by 20%, this should lead to a 20% increase in activity/function. Such an increase in function and activity may result in a continuing reduction in complaints of pain, fatigue, etc. and may also diminish associated depressive and anxiety symptoms. We highly recommend patients make use of the [employer] website, (www.[employer]), that provides a self-management program for people living with fibromyalgia. When tested in a trial, this was shown to be quite effective at improving symptoms. [facility] History of Present illness Narrative* Maddie Owens MD - 02/29/2024 1:50 PM EDT On 02/29/2024, I had the pleasure of seeing Renny Estrada at the [facility]. Renny Estrada was referred for an opinion and advice regarding elevated CRP. My findings and final recommendations will be communicated to the requesting health care provider by way of the shared medical record for internal providers or letter via the [employer] for external providers. 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 - In , had covid. Nose sores intermittently thereafter. - Since , with worsening joint pain affecting the shoulders, wrists and knees. Worse with activity. Initial activity after awakening helps. Worst time of day is evening. - Also with pain in the neck and low back. Hip pain and sciatic pain worse with activity (happen atthe same time). Worse with activity - Today, reports no recent oral steroids. - Takes ibuprofen and flexeril for pain which help - Morning stiffness x30 minutes - Photosensitivity (face/chest) but more heat related, even with warm shower. - Nose sores and hair loss x15 yrs, worse in the past 2 yrs. - No rash PMH/PSH: GERD Anxiety Tension ARAMBULA Migraines Ovarian cysts ALLERGIES: NKDA MEDICATIONS: Current Outpatient Medications Medication Sig escitalopram oxalate (LEXAPRO) 5 mg tablet Take 5 mg by mouth once daily. Norethindrone, Contraceptive, 0.35 mg tablet Take 1 tablet by mouth once daily. cyclobenzaprine (FLEXERIL) 5 mg tablet Take by mouth three times a day. IBUPROFEN ORAL Take by mouth. No current facility-administered medications for this visit. FAMILY HISTORY: Paternal great grandmother- RA Paternal great grandfather- MS Paternal aunt- OA SOCIAL HISTORY: Lives in [place] with spouse. 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 3 kids: 15, 17 and 19 yo. Tobacco use: None Alcohol use: 5-6 drinks/week Drug use: None REVIEW OF SYSTEMS: reviewed 08/22 systems, as above and as below: Joint pain, hair loss, dry eyes, neck/back pain, morning stiffness, nose sores, ARAMBULA, vision changes,GERD PHYSICAL EXAM: VITALS: Blood pressure 121/82, pulse 82, temperature 37.2 C (98.9 F), temperature source Temporal, height 162.6 cm (5' 4), weight 78 kg (172 lb). CONSTITUTIONAL: Well-appearing, in NAD. SKIN: Nonspecific facial erythema with nasolabial involvement. No alopecia. No sclerodactyly, calcinosis, telangiectasias, digital ulcers, or skin thickening. EYES: No scleral icterus or conjunctivitis ENT and Mouth: External ears normal. Nares normal. No oral ulcers RESPIRATORY: Normal breath sounds, clear to auscultation. CARDIOVASCULAR: Regular rate and rhythm, no murmurs or rubs EXTREMITIES/LYMPH: No edema bilaterally NEURO: Awake, alert and oriented, Normal gait MUSCULOSKELETAL: JOINT APPEARANCE: No erythema or warmth of any upper or lower extremity joint. RANGE OF MOTION: Able to fully close fists and curl fingers bilaterally. SWOLLEN JOINTS/SYNOVITIS: No synovitis of any joint. TENDER JOINTS: Tenderness to palpation of the L SI joint Widespread Pain Index: 10 (0-19) Symptoms Severity Scale: 8 (0-12) WPI>7 and SS Scale>5 OR WPI 3-6 and SS Scale >9 consistent with fibromyalgia LABORATORY: *Sep nl WBC, Hgb, Plt, Cr, ALT, AST 09/16/23 HS CRP 8.23 H >3.0 high relative risk 07/15/22 HS CRP 10.30 H >3.0 high relative risk 08/27/21 CRP 12.30 H 0.0-3.0 Unremarkable ESR, RF, CCP, AIXA, 01/18/21 CRP 10.70 H 0.0-3.0 STUDIES: none available for review IMPRESSION and PLAN: 1. Joint pain: Pain in the shoulders, hips and knees without clear evidence for inflammatory arthritis per history or exam. Will assess further for inflammatory arthritis via labs, x-rays and diagnostic prednisone trial as below. With nonspecific facial erythema and flushing that occurs with feeling warm (more than UV light exposure). Will screen for SLE, RA and celiac. Explained that she does meet criteria for fibromyalgia. - Extensively explained the clinical scenario as above - Check labs and x-rays. Notify of results via [employer] - Attempt a diagnostic trial of prednisone 20mg daily x5 days to see if any improvement in joint pain. If there is a significant improvement, this could suggest an inflammatory component of pain which may suggest a diagnosis of inflammatory arthritis. Explained potential side effects including increased appetite, upset stomach (advised taking with food), insomnia (advised taking in morning), increased infection risk, elevated blood glucose levels, elevated blood pressure, palpitations, mood changes and to avoid NSAIDs while on prednisone, tylenol prn ok. Advised to very closely monitor the joint symptoms and contact us to report status upon steroid completion. - If significant improvement with prednisone, then will advise HCQ 300mg/day. If no significant improvement, will advise further focusing on fibromyalgia treatment 2. Elevated CRP: Normal ESR in . RA and SLE screens normal at that time. No clear etiology, explained that CRP elevations are nonspecific and not diagnostic of any particular condition. Given ongoing joint pain, will evaluate for inflammatory arthritis as above. - As above 3. Fibromyalgia: Meets criteria based on WPI/SS scale score as above. Advised that management approach for fibromyalgia could potentially help if evaluation for inflammatory arthritis as above is negative. - Explained diagnosis and provided literature on fibromyalgia for review - Advised aerobic exercise - Please refer to the fibromyalgia treatment guidelines as detailed below for further management byPCP 4. General health maintenance: - Advised to continue follow-up with PCP for routine health maintenance and malignancy screening Follow-up as needed pending above evaluation. Patient was instructed to call if any new or worsening symptoms. Thank you for allowing me to participate in the care of your patient. Maddie Owens MD I spent a total of 60 minutes on the date of the service which included preparing to see the patient, [id number] patient care, completing clinical documentation, obtaining and/or reviewing separately obtained history, performing a medically appropriate examination, counseling and educating the pat ient/family/caregiver, ordering medications, tests, or procedures, independently interpreting results (not separately reported), and communicating results to the patient/family/caregiver. Treatment Recommendations for Fibromyalgia developed by Dr. Buzz Acharya M.D. 1. Medications: We recommend first trying a tricyclic antidepressant such as cyclobenzaprine (Flexeril) or amitriptyline (Elavil) in patients who have not yet had an adequate trial of this class of medications. We prefer Flexeril. Although Flexeril is generally marketed as a muscle relaxant, the similarities in chemical structure to the tricyclic antidepressants make it a very useful medication to treat pain and it can also be helpful for treating sleep disturbance. Begin Flexeril at a dose of 5 mg 2-3 hours before bedtime. Taking the medication in this fashion can help decrease morning grogginess. Increase the dose by 5 mg every week as tolerated until a total dose of 20 mg is achieved. Increased fluid intake may decrease the incidence of dry mouth and constipation. Patients should also be warned about potential weight gain. Amitriptyline (Elavil) can be used similarly in doses starting at 10 mg before bedtime, increasing by 10 mg weekly as tolerated up to 50 mg. Nortriptyline is also a good choice for many people. If maximum tolerated doses of trycyclics are not providing adequate pain relief, we recommend addition (if Flexeril/Elavil is helping) or substitution of a dual reuptake inhibitor such as Cymbalta (duloxetine) or Savella (milnacipran). Such drugs may be the drug of first choice in fibromyalgia patients with prominent depression or fatigue, as they often work well for these co-morbid symptoms (in addition to treating pain). Begin Cymbalta at 30 mg once daily with food. The dose can eventually beincreased up to a total of 120 mg per day as tolerated, taken either as a single night time dose orb.i.d. Begin Savella at 25 mg, slowly increasing the dose as tolerated to a maximum of 100mg daily (e.g. 50 mg b.i.d.). Both drugs may initially cause nausea, palpitations, and other noradrenergic side effects, so patients should be instructed that this may happen. These side effects usually resolve over time. Another class of medication with proven efficacy in fibromyalgia are the bvsri-2-nwopz ligands, Neurontin (gabapentin) and Lyrica (pregabalin). This class of drug might be the best first choice for afibromyalgia patient with prominent sleep problems. Lyrica is specifically approved for fibromyalgia, at doses of both 300 and 450mg. For Neurontin, doses typically in the range of 1500 - 3000 mg arenecessary to treat pain. Both drugs are better tolerated if most or even all of the dose is taken at bedtime (e.g. 150 mg in the morning and 300 mg at night for Lyrica, or 600 mg in the morning and 1200 mg at night for Neurontin). Some of the other medications that can be helpful in some fibromyalgia patients are higher doses ofolder SSRI s such as Prozac, Zoloft, or Paxil. Dosages higher than those typically used for treating depression (e.g. 40 - 50 mg of Prozac) are often necessary as it appears that at these higher dosages the important noradrenergic activity of these drugs becomes more prominent. Gamma hydroxybutyrate (particularly in those with significant sleep problems) and dopamine agonists (in those with co-morbid restless leg syndrome) can also be helpful in subsets of fibromyalgia patients. 2. Non-pharmacologic management: Activity/exercise. A rodriguez aspect of fibromyalgia management is for the patient to appreciate that when their symptom(s) decrease in response to pharmacologic therapy, they must correspondingly increase their function. For example, when medication(s) diminishes pain, fatigue or other symptoms by 20%, this should lead to a 20% increase in activity/function. Such an increase in function and activity may result in a continuing reduction in complaints of pain, fatigue, etc. and may also diminish associated depressive and anxiety symptoms. We highly recommend patients make use of the [employer] website, (www.Eatwave.FancyBox), that provides a self-management program for people living with fibromyalgia. When tested in a trial, this was shown to be quite effective at improving symptoms. [facility]* Raquel Amaya MA - 02/29/2024 11:31 AM EDT Labs completed at [facility]. TEST RESULTS RANGE 11/8/23 H CRP 8.23 H >3.0 high relative risk 9 H CRP 10.30 H >3.0 high relative risk 08/27/21 CRP 12.30 H 0.0-3.0 01/18/21 CRP 10.70 H 0.0-3.0 Raquel Amaya MA [facility]04-[facility] Nurse Note* Raquel Amaya MA - 02/29/2024 11:31 AM EDT Labs completed at [facility]. TEST RESULTS RANGE 11/8/23 H CRP 8.23 H >3.0 high relative risk 9/622 H CRP 10.30 H >3.0 high relative risk 08/27/21 CRP 12.30 H 0.0-3.0 01/18/21 CRP 10.70 H 0.0-3.0 Raquel Amaya MA documented in this encounterOhio[facility] HospitalChi complaint+Reason for visit Narrative* Chief Complaint LOW BACK PAIN. 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 CRP, FAMILY HX CAD (L MALYS) ELEVATED CRP ELEVATED CRP FALL, PAIN Reason for Visit Dyslipidemia Elevated high sensitivity C-reactive protein Family history of coronary artery disease [facility] Work Phone: Evaluation noteNo assessment information available [facility] Work Phone: Evaluation note* Diagnosis Onset Date Resolution Status Cellulitis of left leg acute [facility] Work Phone: Evaluation note* Diagnosis Onset Date Resolution Status Dyslipidemia acute Elevated high sensitivity C-reactive protein acute Family history of coronary artery disease acute [facility] Work Phone: Evaluation note* Diagnosis Pain in joint, multiple sites- Primary CRP elevated Elevated C-reactive protein (CRP) Hair loss Alopecia, unspecified documented in this encounter [facility]* Diagnosis Onset Date Resolution Status Admit Date Contraception management acute May 17, 2025 3:17pm Encounter for routine gynecological examination noneactive May 172024 3:17pm [facility] Work Phone: Reason for referral (narrative)* Diagnostic Procedure Only (Routine) - Pending Review Specialty Diagnoses / Procedures Referred By Laura poe Referred To Contact XR IMAGING Diagnoses Pain in joint, multiple sites Procedures XR HAND GENERAL 3V PA/LAT/OBL BILATERAL RADEX HAND MINIMUM [address] [place] [address] [place] [address] [facility] [place] [address] Referral ID Status Reason Start Date Expiration Date Visits Requested Visits Authorized [id number] Pending Review Auto-Generat ed Referral 02/29/2024 03/30/2025 1 1 * Diagnostic Procedure Only (Routine) - Pending Review Specialty Diagnoses / Procedures Referred By Laura poe Referred To Contact XR IMAGING Diagnoses Pain in joint, multiple sites Procedures XR SACROILIAC JOINTS 2V AP PELVIS/FERGUESON RADIOLOGIC EXAMINATION SACROILIAC JNTS <3 [place] [address] [place] [address] [place] [address] Referral ID Status Reason Start Date Expiration Date Visits Requested Visits Authorized [id number] Pending Review Auto-Generat ed Referral 02/29/2024 03/30/2025 1 1 [facility] for referral (narrative)No reason for referral information availableFloyd [facility] Work Phone: Chief Complaint and Reason for Visit Chief Complaint 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, 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 m screening for breast cancer May 24, 2 025 4:10pm Reason for Visit Admit Date Contraception management May 17, 2025 3:17pm Encounter for routine gynecological exam ination May 17, 2025 3:17pm Chief Complaint INFECTED BUG BITE Reason for Visit Cellulitis of left l eg Chief Complaint INFECTED BUG BITE 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 Visit Cellulitis of left l eg 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 Chief Complaint 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, 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 m Family History No Family History Records Found Relationship Condition Age at Onset Recorded Date/T aleks father Arthritis Unknown Anxiety Unknown Asthma Unknown Depression Unknown Cardiac disease Unknown Hypertension Unknown Hyperlipidemia Unknown Angina pectoris Unknown Psychiatric care Unknown Chronic obstructive pulmonary disease Unk nown Congestive heart failure Unknown Implantable cardiove rter-defibrillator (ICD) in situ Unknown mother Anxiety Unknown Alcoholism Unknown sister Depression Unknown grandmother Arthritis Unknown Malignant neoplasm Unknown grandfather Cardiac disease Unknown Summary Purpose Advance Directives No Advanced Directives Records FoundNo Advanced Directives Records Found Additional Source Comments Goals (unrecognized section and content) Goals may be documented in a n alternate sectionGoals may be documented in an alternate sectionGoals may be documented in an alternate sectionGoals may be documented in an alternate sectionGoals may be documented in an alternate sectionGoals may be documented in an alternate sectionGoals may be documented in an alternate sectionGoals may be documented in an alternate sectionGoals may be documented in an alternate section Care Teams (unrecognized sec tion and content) Team Status: Active Member Role Status Dates Dr. Maria G Bonilla DO Family Provider Active Dr. Maria G Bonilla DO Primary Care Provider Active Team Status: Active Member Role Status Dates Dr. Maria G Bonilla DO Primary Care Provider Active Health Risk Assessment Attending Provider, Referring P wagner Active Team Status: Inactive Member Role Status Dates Dr. Maria G Bonilla DO Primary Care Provider Active Dr. Lilliana Kinsey MD Attending Provider, Referring Pr jesusita Active Gore Inserter Relationship Specialty Start Date End Date Maria G Bonilla DO [address] [place], [place] [id number] PCP - General Family Medicine 02/29/24 Gore Inserter Relationship Specialty Start Date End Date Christina Bonillaa DO Vivienne [address] [place], [place] [id number] PCP - [facility] Family Medicine 02/29/24 Team Status: Active Member Role/Relationship Status Dates Dr. Maria G Bonilla DO Primary Care Provider Active Team Status: Inactive Member Role/Relationship Status Dates Dr. Maria G Bonilla DO Primary Care Provider Active Start: May 17, 2025 End: May 17, 2025 Dr. Maria G Bonilla DO Referring Provider Active St art: May 17, 2025 End: May 17, 2025 BROOKS Schmid Attending Provider Active Start: May 17, 2025 End: May 17, 2025 Team Status: Inactive Member Role/Relationship Status Dates Dr. Maria G Bonilla DO Primary Care Provider Active Start: May 24, 2025 End: May 24, 2025 BROOKS Schmid Attending Provider Active Start: May 24, 2025 End: May 24, 2025 BROOKS Schmid Referring Provider Active Start: May 24, 2025 End: May 24, 2025 Source Comments (unrecognize d section and content) In the event this informatio n is protected by the Federal Confidentiality of Alcohol and Drug Abuse Patient Records regulations: The Federal rules restrict any use of the information to criminally investigate or prosecute any alcohol or drug abuse patient.[facility] HospitalIn the event this information is protected by the Federal Confidentiality of Alcohol and Drug Abuse Patient Records regulations: The Federal rules restrict any use of the information to criminally investigate or prosecute any alcohol or drug abuse patient.[facility] Reason for Visit (unrecogniz ed section and content) Reason Comments Abstract Outside lab results Reason Comments New Patient INFORMATION SOURCE (unrecogn ized section and content) DATE CREATED AUTHOR 03/01/2024 [facility] DATE CREATED AUTHOR 'S ORGANIZ ATION 09/07/2025 [facility] FOR RECORDS PERTAINING TO PATIENTS WHO ARE OR HAVE BEEN ENROLLED IN A CHEMICAL DEPENDENCY/SUBSTANCEABUSE PROGRAM, SOME INFORMATION MAY BE OMITTED. This clinical summary was aggregated from multiple sources. Caution should be exercised in using it in the provision of clinical care. This summary normalizes information from multiple sources, and as a consequence, information in this document may materially change the coding, format and clinical context of patient data. In addition, data may be omitted in some cases. CLINICAL DECISIONS SHOULD BE BASED ON THE PRIMARY CLINICAL RECORDS. [employer] provides no warranty or guarantee of the accuracy or completeness of information in this document.
--- NOTE | 2025-10-16 13:43 | CA.SCORE ---
Calcium Scoring Date of Study:: 10/16/25 Indications Indications: Family history Coronary Calcium Scoring: High-resolution Computed Tomographic imaging of the chest was performed on [10/16/2025], with particular attention paid to the coronary arteries. Images from the examination were analyzed for the presence and extent of coronary artery calcification , using coronary calcium quantification software. The patient tolerated the procedure well and there were no complications. The results of the coronary calcification analysis are provided below. Findings Coronary Artery Left Main (LM): 0 Left Anterior Descending (LAD): 0 Left Circumflex (LCX): 0 Right Coronary Artery (RCA): 0 Total Agatston Score: 0 Percentile Rankin Calcium Scoring Interpretation: Different methods to categorize the overall amount of coronary plaque. Overall amount CAC SIS Visual of coronary plaque P1 Mild -100 <2 1-2 vessels with mild amount of plaque P2 Moderate 101-300 3-4 1-2 vessels with moderate amount, 3 vessels with mild amount of plaque P3 Severe 301-999 5-7 3 vessels with moderate amount, 1 vessel with severe amount of plaque P4 Extensive >1000 >8 2-3 vessels with severe amount of plaque Conclusion: No atherosclerotic plaque noted
== END | disposition home or self-care (01) ==
LOC: CT 07:14
PROVIDERS: PCP Family Medicine; Referring Provider Family Medicine; Visit Provider Family Medicine
DX: K76.0 Fatty (change of) liver, not elsewhere classified (principal); Z82.49 Family history of ischemic heart disease and other diseases of the circulatory system
CPT/HCPCS: 75571; 76380